=== PATIENT | female | born 1965 | race African-American/Black ===

== ENCOUNTER 2018-05-11 20:31 | Emergency (ER) | payer SELFPAY ==
[2018-05-11 21:46] LABS: Absolute Lymphocytes (CBC) 1.4 K/uL (0.7-4.9); Basophils % 0.1 % (0-1.3); Eosinophils % 1.1 % (0-4.4); Hematocrit 48.6 % (36.0-45.0); Lymphocytes % 12.2 % (15.3-44.8); MCH 27.7 pg (27.0-35.0); MPV 9.8 fL (7.6-11.3); Monocytes % 8.4 % (3.3-12.3); RBC Red Blood Cell Count 5.92 M/uL (3.86-4.86)
[2018-05-11 21:51] LABS: Protime INR 0.97
[2018-05-11 22:19] LABS: ALT/SGPT 32 U/L (12-78); AST/SGOT 20 U/L (15-37); Albumin 3.8 g/dL (3.4-5.0); Alkaline Phosphatase 106 U/L (45-117); BUN Blood Urea Nitrogen 18 mg/dL (7-18); Bicarbonate 27 mmol/L (21-32); Bilirubin Direct < 0.1 mg/dL (0-0.2); Bilirubin Total 0.3 mg/dL (0.2-1.0); Glucose Level 96 mg/dL (74-106); NT PRO-BNP 48 pg/mL (<125); Protein, Total 8.1 g/dL (6.4-8.2); Sodium Level 143 mmol/L (136-145); Troponin (Emerg Dept Use Only) < 0.02 ng/mL (0.0-0.045)
[2018-05-12] MEDS ORDERED: ACETAMINOPHEN 500 MG TAB ONE (00:57)
--- NOTE | 2018-05-12 01:17 | ER ---
Nurse's Notes [facility] Name: Erna Tabor Age: 52 yrs Sex: Female : 1965 Arrival Date: 05/11/2018 Time: 20:32 Bed 13 Private MD: Diagnosis: Chest pain, unspecified;Abnormal electrocardiogram [ECG] [EKG] Presentation: 05/11 20:40 Presenting complaint: EMS states: Pt was complaining of abdominal pain and nausea, when jb4 we attempted to start an IV she refused. Started complaining of chest pain and indigestion along with right shoulder pain. Transition of care: patient was not received from another setting of care. Onset of symptoms was May 11, 2018. Risk Assessment: Do you want to hurt yourself or someone else? Patient reports no desire to harm self or others. Initial Sepsis Screen: Does the patient meet any 2 criteria? No. Patient's initial sepsis screen is negative. Does the patient have a suspected source of infection? No. Patient's initial sepsis screen is negative. 20:40 Method Of Arrival: EMS: [facility] jb4 20:40 Acuity: SENAIT 3 jb4 20:40 Care prior to arrival: Glucose check: 102. jb4 Triage Assessment: 20:56 General: Appears in no apparent distress. uncomfortable, Behavior is calm, cooperative. jb4 Pain: Complains of pain in anterior aspect of right shoulder, thoracic area, chest and abdomen Pain does not radiate. Pain currently is 10 out of 10 on a pain scale. EENT: No signs and/or symptoms were reported regarding the EENT system. Neuro: Level of Consciousness is awake, alert, obeys commands, Oriented to person, place, time, situation. Cardiovascular: Patient's skin is warm and dry. Rhythm is sinus rhythm. Respiratory: Airway is patent Respiratory effort is even, unlabored, Respiratory pattern is regular, symmetrical. GI: Abdomen is round non-distended, Bowel sounds present X 4 quads. Abd is soft X 4 quads Abd is non tender in right upper quadrant, left upper quadrant and right lower quadrant Abdomen is tender to palpation in left lower quadrant. : No signs and/or symptoms were reported regarding the genitourinary system. Derm: Skin is intact, Skin is dry, Skin is normal, Skin temperature is warm. Musculoskeletal: Circulation, motion, and sensation intact. 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 - Social history:: Smoking status: Patient uses tobacco products, smokes one-half pack cigarettes per day, Patient uses alcohol, occasionally. - Ebola Screening: : No symptoms or risks identified at this time. Screenin:01 Abuse screen: Denies threats or abuse. Nutritional screening: No deficits noted. jb4 Tuberculosis screening: No symptoms or risk factors identified. Fall Risk None identified. Assessment: 21:01 General: see triage assessment.. jb4 22:09 Reassessment: Patient appears in no apparent distress at this time. Patient and/or jb4 family updated on plan of care and expected duration. Pain level reassessed. Patient is alert, oriented x 3, equal unlabored respirations, skin warm/dry/pink. 22:48 Reassessment: Patient appears in no apparent distress at this time. Patient and/or jb4 family updated on plan of care and expected duration. Pain level reassessed. Pt is resting quietly with eyes closed. Respirations even and unlabored. 05/12 00:07 Reassessment: Patient appears in no apparent distress at this time. Patient and/or jb4 family updated on plan of care and expected duration. Pain level reassessed. Patient is alert, oriented x 3, equal unlabored respirations, skin warm/dry/pink. Vital Signs: 05/11 20:56 BP 105 / 65; Pulse 88; Resp 18; Temp 98.6(O); Pulse Ox 95% on R/A; Weight 63.5 kg (R); jb4 Height 5 ft. 4 in. (162.56 cm) (R); Pain 10/10; 22:45 BP 106 / 72; Pulse 94; Resp 92; Pulse Ox 94% on R/A; jb4 05/12 00:07 BP 103 / 74; Pulse 94; Resp 16; Pulse Ox 94% on R/A; jb4 05/11 20:56 Body Mass Index 24.03 (63.50 kg, 162.56 cm) jb4 ED Course: 05/11 20:32 Patient arrived in ED. al2 20:51 Neo Bautista, RN is Primary Nurse. jb4 20:51 Deepak Hinkle MD is Attending Physician. 20:54 Triage completed. jb4 20:56 Arm band placed on right wrist. jb4 21:01 Patient has correct armband on for positive identification. Bed in low position. Call jb4 light in reach. Side rails up X 1. conveyor monitor on. Pulse ox on. NIBP on. 21:15 Initial lab(s) drawn, by nd, sent to lab. Missed attempt(s): 22 gauge in left forearm. jp3 Bleeding controlled, band aid applied, catheter tip intact. Inserted saline lock: 24 gauge in left wrist, using aseptic technique. Blood collected. 21:16 XRAY Chest (1 view) In Process Unspecified. EDMS 21:37 Basic Metabolic Panel Sent. jb4 21:37 CBC with Diff Sent. jb4 21:37 LFT's Sent. jb4 21:37 Magnesium Sent. jb4 21:37 NT PRO-BNP Sent. jb4 21:37 PT-INR Sent. jb4 21:37 Troponin (emerg Dept Use Only) Sent. jb4 05/12 01:42 No provider procedures requiring assistance completed. IV discontinued, intact, jb4 bleeding controlled. Administered Medications: 01:00 Drug: Tylenol 500 mg Route: PO; jb4 01:15 Follow up: Response: No adverse reaction; Pain is decreased jb4 Outcome: 01:16 Discharge ordered by . 01:42 Discharged to home ambulatory. jb4 01:42 Condition: stable 01:42 Discharge instructions given to patient, Instructed on discharge instructions, follow up and referral plans. Demonstrated understanding of instructions, follow-up care. 02:18 Patient left the ED. jb4 Signatures: Dispatcher [employer] EDMS Neo Bautista RN RN jb4 Deepak Hinkle MD MD gs Love, Librado Figueroa jp3
--- NOTE | 2018-05-12 01:17 | EDPHYS ---
Physician Documentation [facility] Name: Erna Tabor Age: 52 yrs Sex: Female : 1965 Arrival Date: 05/11/2018 Time: 20:32 Bed 13 Private MD: ED Physician Deepak Hinkle HPI: 05/12 03:00 This 52 yrs old Black Female presents to ER via EMS with complaints of chest pain. gs 03:00 The patient or guardian reports chest pain that is located primarily in the epigastric gs area. Onset: yesterday. The pain does not radiate. Associated signs and symptoms: Pertinent positives: cough, body aches. The chest pain is described as burning. Duration: The patient or guardian reports multiple episodes, that wax and wane, with no pattern. Modifying factors: The symptoms are alleviated by nothing. the symptoms are aggravated by nothing. Severity of pain: At its worst the pain was moderate in the emergency department the pain has improved markedly. The patient has experienced similar episodes in the past, a few times. 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 - Social history:: Smoking status: Patient uses tobacco products, smokes one-half pack cigarettes per day, Patient uses alcohol, occasionally. - Ebola Screening: : No symptoms or risks identified at this time. ROS: 05/12 03:00 All other systems are negative. gs Exam: 03:00 Head/Face: Normocephalic, atraumatic. Eyes: Pupils equal round and reactive to light, gs extra-ocular motions intact. Lids and lashes normal. Conjunctiva and sclera are non-icteric and not injected. Cornea within normal limits. Periorbital areas with no swelling, redness, or edema. ENT: Nares patent. No nasal discharge, no septal abnormalities noted. Tympanic membranes are normal and external auditory canals are clear. Oropharynx with no redness, swelling, or masses, exudates, or evidence of obstruction, uvula midline. Mucous membranes moist. Neck: Trachea midline, no thyromegaly or masses palpated, and no cervical lymphadenopathy. Supple, full range of motion without nuchal rigidity, or vertebral point tenderness. No Meningismus. Chest/axilla: Normal chest wall appearance and motion. Nontender with no deformity. No lesions are appreciated. Cardiovascular: Regular rate and rhythm with a normal S1 and S2. No gallops, murmurs, or rubs. Normal PMI, no JVD. No pulse deficits. Respiratory: Lungs have equal breath sounds bilaterally, clear to auscultation and percussion. No rales, rhonchi or wheezes noted. No increased work of breathing, no retractions or nasal flaring. Back: No spinal tenderness. No costovertebral tenderness. Full range of motion. Skin: Warm, dry with normal turgor. Normal color with no rashes, no lesions, and no evidence of cellulitis. MS/ Extremity: Pulses equal, no cyanosis. Neurovascular intact. Full, normal range of motion. Neuro: Awake and alert, GCS 15, oriented to person, place, time, and situation. Cranial nerves II-XII grossly intact. Motor strength 5/5 in all extremities. Sensory grossly intact. Cerebellar exam normal. Normal gait. 03:00 Constitutional: The patient appears alert, awake. 03:00 Abdomen/GI: Palpation: mild abdominal tenderness, in the epigastric area. 03:00 ECG was reviewed by the Attending Physician. Vital Signs: 05/11 20:56 BP 105 / 65; Pulse 88; Resp 18; Temp 98.6(O); Pulse Ox 95% on R/A; Weight 63.5 kg (R); jb4 Height 5 ft. 4 in. (162.56 cm) (R); Pain 10/10; 22:45 BP 106 / 72; Pulse 94; Resp 92; Pulse Ox 94% on R/A; jb4 05/12 00:07 BP 103 / 74; Pulse 94; Resp 16; Pulse Ox 94% on R/A; 4 05/11 20:56 Body Mass Index 24.03 (63.50 kg, 162.56 cm) [facility] MDM: 05/11 21:01 Patient medically screened. 05/12 03:00 Differential diagnosis: abnormal EKG, gastritis, gastroesophageal reflux disease (GERD). Data reviewed: vital signs, nurses notes, lab test result(s), EKG, radiologic studies. Response to treatment: the patient's symptoms have resolved after treatment, the patient's pain is gone, and as a result, I will discharge patient. 05/11 20:52 Order name: Basic Metabolic Panel; Complete Time: 22:20 05/11 20:52 Order name: CBC with Diff; Complete Time: 22:20 05/11 20:52 Order name: LFT's; Complete Time: 22:20 05/11 20:52 Order name: Magnesium; Complete Time: 22:20 05/11 20:52 Order name: NT PRO-BNP; Complete Time: 22:20 05/11 20:52 Order name: PT-INR; Complete Time: 22:20 05/11 20:52 Order name: Troponin (emerg Dept Use Only); Complete Time: 22:20 05/11 20:52 Order name: XRAY Chest (1 view) 05/11 20:52 Order name: EKG; Complete Time: 20:54 05/11 20:52 Order name: Cardiac monitoring; Complete Time: 21:37 05/11 20:52 Order name: EKG - Nurse/Tech; Complete Time: 21:37 05/11 20:52 Order name: IV Saline Lock; Complete Time: : 05/11 23:30 Order name: Troponin (emerg Dept Use Only); Complete Time: 01:13 05/11 20:52 Order name: Labs collected and sent; Complete Time: 21:37 05/11 20:52 Order name: O2 Per Protocol; Complete Time: :37 05/11 20:52 Order name: O2 Sat Monitoring; Complete Time: :37 EC:00 Rate is 89 beats/min. Rhythm is regular. DC interval is normal. QRS interval is normal. gs T waves are Inverted. Clinical impression: NSR w/ Non-specific ST/T Changes and Abnormal EKG without significant change. Interpreted by me. Administered Medications: 01:00 Drug: Tylenol 500 mg Route: PO; jb4 01:15 Follow up: Response: No adverse reaction; Pain is decreased jb4 Disposition: 05/12/18 01:16 Discharged to Home. Impression: Chest pain, unspecified, Abnormal electrocardiogram [ECG] [EKG]. - Condition is Stable. - Discharge Instructions: Nonspecific Chest Pain. - Medication Reconciliation Form, Thank You Letter, Antibiotic Education, Prescription Opioid Use form. - Follow up: Private Physician; When: 2 - 3 days; Reason: Re-evaluation by your physician. Signatures: Dispatcher [employer] Neo Cruz RN RN jb4 Deepak Hinkle MD MD gs Corrections: (The following items were deleted from the chart) 01:18 01:16 05/12/2018 01:16 Discharged to Home. Impression: Chest pain, unspecified. gs Condition is Stable. Forms are Medication Reconciliation Form, Thank You Letter, Antibiotic Education, Prescription Opioid Use. Follow up: Private Physician; When: 2 - 3 days; Reason: Re-evaluation by your physician. 02:18 01:18 05/12/2018 01:16 Discharged to Home. Impression: Chest pain, unspecified; jb4 Abnormal electrocardiogram [ECG] [EKG]. Condition is Stable. Discharge Instructions: Nonspecific Chest Pain. Forms are Medication Reconciliation Form, Thank You Letter, Antibiotic Education, Prescription Opioid Use. Follow up: Private Physician; When: 2 - 3 days; Reason: Re-evaluation by your physician.
[2018-05-12] MEDS ORDERED: FAMOTIDINE 20 MG TAB ONE (02:58)
[2018-05-12] MEDS ORDERED: ONDANSETRON 4 MG (ODT) TAB ONE (02:58)
--- NOTE | 2018-05-12 11:47 | EKG ---
Test Date: 2018-05-11 Test Time: 20:49:24 Channeler Outsole: MARINA MEASUREMENT RESULTS: Intervals: Rate: 89 WI: 120 QRSD: 86 QT: 362 QTc: 440 [place]: P: 63 WI: 120 QRS: 64 T: -52 INTERPRETIVE STATEMENTS: Normal sinus rhythm Possible Left atrial enlargement T wave abnormality, consider inferior ischemia T wave abnormality, consider anterolateral ischemia Abnormal ECG No previous ECG available for comparison Electronically Signed On 05-12-18 11:45:55 NATURAL SCIENCES PROFESSOR by Jhoan Kelly
--- NOTE | 2018-05-12 12:52 | RAD REPORT ---
EXAM DESCRIPTION: RAD - Chest Single View - 05/11/2018 9:42 pm CLINICAL HISTORY: Chest pain COMPARISON: None. TECHNIQUE: AP portable chest image was obtained 2105 hours . FINDINGS: No focal infiltrate seen. An approximately 8 millimeter round dense nodule is present left mid lung field superimposed on the posterior left eighth rib. This is relatively dense and is probab ly a granuloma. A benign sclerotic process of the rib be possible. Heart and vasculature are normal. No measurable pleural effusion and no pneumothorax. No acute bony abnormality seen. No acute aortic f indings suspected. Final report was delayed due to network malfunction. IMPRESSION: No infiltrate or acute cardiopulmonary finding seen. Small nodule in the left mid lung field is probably a granuloma but needs comparison imaging. Any known outside chest exam could be submitted for comparison. A 3-4 months single-view chest follow -up could be obtained. If the patient has smoking history or other risk factor, CT imaging of the [address] st could be performed.
== END 2018-05-12 02:18 | disposition home or self-care (01) ==
LOC: ER 20:31
DX: R94.31 Abnormal electrocardiogram [ECG] [EKG] (principal); K21.9 Gastro-esophageal reflux disease without esophagitis; F17.210 Nicotine dependence, cigarettes, uncomplicated
CPT/HCPCS: 36415; 71045; 80048; 80076; 83735; 83880; 84484; 85025; 85610; 93005; 99284

== ENCOUNTER 2018-05-12 02:31 | Emergency (ER) | payer SELFPAY ==
--- OUTSIDE RECORDS SUMMARY | 2018-05-12 02:36 | XMS REPORT | Continuity of Care Document ---
:1965 Author Organization Interface Problems Problem Status Onset Classification Date Comments Source Date Reported Acute reaction 12/12/19 12/14/2017 The to stress 18 [facility] Homeless 12/12/19 12/14/2017 The 18 [facility] NADEEM Active 12/12/19 The 18 [facility] Pain in right 08/27/19 11/24/2017 knee 18 [facility] Bilateral knee 08/19/19 11/24/2017 pain 18 [facility] Pain and 08/19/19 11/24/2017 swelling of left 18 [facility] knee. KNEE PAIN Active 08/19/19 18 [facility] SMALL BOWEL Active 06/28/19 OBSTRUCTION 17 [facility] ABD PAIN Active 06/28/19 17 [facility] STOMACH PAIN Active 06/18/19 17 [facility] Discharge 01/18/20 01/21/2016 Diagnosis: 16 [facility] Polysubstance abuse ANXIETY Active 01/18/20 16 [facility] Discharge 08/02/19 08/05/2015 Diagnosis: 16 [facility] Muscle strain LEG PAIN Active 08/02/19 16 [facility] Mass of abdomen Resolved Problem 12/14/2017 [facility] Abdominal pain Active Problem 12/14/2017 [place] Bipolar 1 Resolved Problem 12/14/2017 The disorder, [place],M depressed H [facility] Nausea and Active Problem 12/14/2017 vomiting [place] Pain Active Problem 12/14/2017 [place] Effusion, left 11/24/2017 knee [facility] Major depressive 11/24/2017 disorder, single [facility] episode, unspecified Rheumatoid 11/24/2017 arthritis, [facility] unspecified Nicotine 11/24/2017 dependence, [facility] cigarettes, uncomplicated OTHER INTESTINAL Active OBSTRUCTION [facility] Medications Medication Details Route Status Patient Ordering Order Source Instructions Provider Date meloxicam 7.5 MG 7.5 mg=1 tab, Active Oral Tablet PO, BID, PRN 2017 [facility] [Mobic] Pain, # 14 tab, 0 Refill(s) Motrin 600 mg, Route: Inactive PO, Drug form: 2017 [facility] TAB, ONCE, Dosing Weight 61.364, kg, Priority: STAT, Start date: 08/18/17 11:30:00 [employer], Stop date: 08/18/17 11:30:00 [employer] Flagyl 500 mg, 100 mL, Inactive Route: IVPB, 2016 [facility] Drug form: INJ, [id number], Dosing Weight 63.636, kg, Start date: 07/01/16 14:00:00 [employer], Duration: 30 day, Stop date: 07/31/16 6:00:00 CSTNotes: (Same as: Flagyl) Avoid alcohol. tramadol 50 mg=1 tab, Active hydrochloride 50 PO, Q6H, PRN 2017 [facility] MG Oral Tablet Pain Score 6-10, X 3 day, # 12 tab, 0 Refill(s) magnesium sulfate 50 mL, Rate: 25 Inactive ml/hr, Infuse 2016 [facility] over: 2 hr, Route: IVPB, Total Volume: 50, Start date: 06/29/16 20:05:00 [employer], Stop date: 06/29/16 20:05:00 CSTNotes: WASTE: F/P - Sink; E - [employer] Lovenox 40 mg, 0.4 mL, No Longer Route: SUB-Q, Active 2016 [facility] Drug form: INJ, [id number], Dosing Weight 70.455, kg, Start date: 06/29/16 9:00:00 [employer], Duration: 30 day, Stop date: 07/28/16 9:00:00 CSTNotes: (Same as: Lovenox) Flagyl 500 mg, 100 mL, No Longer Route: IVPB, Active 2016 [facility] Drug form: INJ, [id number], Dosing Weight 63.636, kg, Start date: 06/29/16 5:00:00 [employer], Duration: 30 day, Stop date: 07/28/16 21:00:00 CSTNotes: (Same as: Flagyl) Avoid alcohol. Ciprofloxacin 400 mg, 200 mL, No Longer Route: IVPB, Active 2016 [facility] Drug form: INJ, [id number], Dosing Weight 63.636, kg, Priority: STAT, Start date: 06/29/16 4:36:00 [employer], Duration: 30 day, Stop date: 07/28/16 16:36:00 CSTNotes: Do not refrigerate Enoxaparin 40 mg, 0.4 mL, No Longer Route: SUB-Q, Active 2016 [facility] Drug form: INJ, [id number], Dosing Weight 70.455, kg, Start date: 06/28/16 23:00:00 [employer], Duration: 30 day, Stop date: 07/27/16 23:00:00 CSTNotes: (Same as: Lovenox) Saline Flush 0.9% 10 ml, Route: No Longer IVP, Drug Form: Active 2016 [facility] INJ, Dosing Weight 70.455, kg, PRN, PRN Line Flush, Start date: 06/28/16 22:17:00 [employer], Duration: 30 day, Stop date: 07/28/16 22:16:00 CSTNotes: (Same as: BD Posiflush) Sodium Chloride 1,000 mL, Rate: No Longer 0.0769 MEQ/ML 100 ml/hr, Active 2016 [facility] Injectable Infuse over: 10 Solution hr, Route: IV, Dosing Weight 70.455 kg, Total Volume: 1,000, Start date: 06/28/16 22:17:00 [employer], Duration: 30 day, Stop date: 07/28/16 22:16:00 [employer] Morphine 2 mg, 0.5 mL, No Longer Route: IVP, Active 2016 [facility] Drug form: SOLN, Q3H, Dosing Weight 70.455, kg, PRN Pain Score 4-6, Start date: 06/28/16 22:17:00 [employer], Duration: 30 day, Stop date: 07/28/16 22:16:00 CSTNotes: (Same as:MORPhine Sulfate) Ondansetron 4 mg, 2 mL, No Longer Route: IVP, Active 2016 [facility] Drug form: INJ, Q4H, Dosing Weight 70.455, kg, PRN Nausea & Vomiting, Start date: 06/28/16 22:17:00 [employer], Duration: 30 day, Stop date: 07/28/16 22:16:00 CSTNotes: (Same as: Zofran) MEDICATION WASTE Product Size: 4 mg Product Wasted: ___ mg Acetaminophen 650 mg, 2 tab, No Longer Route: PO, Drug Active 2016 [facility] form: TAB, Q4H, Dosing Weight 70.455, kg, PRN Pain 1-3/Temp > 100.4 F, Start date: 06/28/16 22:17:00 [employer], Duration: 30 day, Stop date: 07/28/16 22:16:00 CSTNotes: Do not exceed 4 gm/day. (Same as: Tylenol) Morphine 4 mg, Route: Inactive IVP, Drug form: 2016 [facility] INJ, ONCE, Dosing Weight 70.455, kg, Priority: STAT, Start date: 06/28/16 20:33:00 [employer], Stop date: 06/28/16 20:33:00 [employer] Barium Sulfate 450 mL, Route: Inactive PO, Drug Form: 2016 [facility] SUSP, Dosing Weight 70.455, kg, ONCE, Start date: 06/28/16 17:00:00 [employer], Stop date: 06/28/16 17:00:00 CSTNotes: Same as Readi-Cat 2 Metoclopramide 10 mg, 2 mL, Inactive Route: IVP, 2016 [facility] Drug form: INJ, ONCE, Dosing Weight 70.455, kg, Priority: STAT, Start date: 06/28/16 17:00:00 [employer], Stop date: 06/28/16 17:00:00 CSTNotes: (Same as: Reglan) Morphine 4 mg, 1 mL, Inactive Route: IVP, 2016 [facility] Drug form: SOLN, ONCE, Dosing Weight 70.455, kg, Priority: STAT, Start date: 06/28/16 17:00:00 [employer], Stop date: 06/28/16 17:00:00 CSTNotes: (Same as:MORPhine Sulfate) Sodium Chloride 1,000 mL, 1000 Inactive 0.154 MEQ/ML ml/hr, Infuse 2016 [facility] Injectable Over: 1 hr, Solution Route: IV, 1,000, Drug form: INJ, ONCE, Priority: STAT, Dosing Weight 70.455 kg, Start date: 06/28/16 17:00:00 [employer], Duration: 1 doses or times, Stop date: 06/28/16 17:00:00 [employer] Saline Flush 0.9% 10 mL, Route: Inactive IVP, Drug Form: 2016 [facility] INJ, Dosing Weight 70.455, kg, PRN, PRN Line Flush, Start date: 06/28/16 17:00:00 [employer], Duration: 30 day, Stop date: 07/28/16 16:59:00 CSTNotes: (Same as: BD Posiflush) Acetaminophen 300 2 tab, PO, Q4H, Active MG / Codeine PRN Pain, X 7 2016 [facility] Phosphate 30 MG day, # 50 tab, Oral Tablet 0 Refill(s) [Tylenol with Codeine #3] Docusate Sodium 100 mg=1 cap, Active 100 MG Oral PO, BID, PRN 2017 [facility] Capsule [Colace] Constipation, # 20 cap, 0 Refill(s) Ondansetron 4 MG 4 mg=1 tab, PO, Active Disintegrating BID, PRN Nausea 2017 [facility] Tablet [Zofran] and Vomiting, Dissolve tab under tongue, X 5 day, # 10 tab, 0 Refill(s) pantoprazole 20 40 mg=2 tab, Active MG Enteric Coated PO, Daily, # 60 2016 [facility] Tablet [Protonix] tab, 0 Refill(s) Nicotine 21 mg, 1 patch, No Longer Route: TOP, Active 2016 [facility] Drug form: ERFILM, Daily, Dosing Weight 70.455, kg, Priority: NOW, Start date: 06/21/16 11:31:00 [employer], Duration: 30 day, Stop date: 07/21/16 9:00:00 CSTNotes: (Same as: Habitrol) "Remove old patch before application of new patch" WASTE: F/P - P Waste Black; E - P Waste Black morphine Sulfate 1 mg, 0.25 mL, Inactive Route: IVP, 2016 [facility] Drug form: SOLN, ONCE, Start date: 06/20/16 23:21:00 [employer], Stop date: 06/20/16 23:21:00 CSTNotes: (Same as:MORPhine Sulfate) Alprazolam 2 MG 2 mg=1 tab, PO, No Longer Oral Tablet Bedtime, # 20 Active 2017 [facility] [Xanax] tab, 0 Refill(s) Acetaminophen 325 1 tab, PO, Q4H, No Longer MG / Hydrocodone PRN for pain, # Active 2017 [facility] Bitartrate 10 MG 24 tab, 0 Oral Tablet Refill(s) [Chloride 10/325] meloxicam 15 mg 15 mg=1 tab, No Longer oral tablet PO, Daily, # 30 Active 2017 [facility] tab, 0 Refill(s) Hydralazine 10 mg, 0.5 mL, No Longer Route: IVP, 2016 [facility] Drug form: INJ, Q4H, Dosing Weight 70.455, kg, PRN Hypertension, PLease give for sys BP >150, Start date: 06/19/16 7:56:00 [employer], Duration: 30 day, Stop date: 07/19/16 7:55:00 CSTNotes: (Same as: Apresoline) Push over 5 minutes Labetalol 20 mg, 4 mL, No Longer Route: IVP, 2016 [facility] Drug form: INJ, Q4H, Dosing Weight 70.455, kg, PRN Hypertension, Start date: 06/19/16 7:55:00 [employer], Duration: 30 day, Stop date: 07/19/16 7:54:00 CSTNotes: (Same as: Normodyne, Trandate) Push over 2 minutes Give bolus over 2-3 minutes. Tylenol 1,000 mg, 2 No Longer tab, Route: PO, Active 2016 [facility] Drug form: TAB, Q8H, Dosing Weight 70.455, kg, PRN For Temp > 100.4 F, Start date: 06/19/16 7:55:00 [employer], Duration: 30 day, Stop date: 07/19/16 7:54:00 CSTNotes: Max acetaminophen 4000 mg/day (4 gm/day). (Same as: Tylenol Extra Strength) Protonix 40 mg, Route: No Longer IVP, Drug form: 2016 [facility] INJ, Before Breakfast, Dosing Weight 70.455, kg, Priority: NOW, Start date: 06/19/16 7:55:00 [employer], Duration: 30 day, Stop date: 07/19/16 7:30:00 CSTNotes: For IV push reconstitute with 10 ml 0.9% sodium chloride and push over 2 minutes. (Same as: Protonix) Lovenox 40 mg, 0.4 mL, No Longer Route: SUB-Q, Active 2016 [facility] Drug form: INJ, [id number], Dosing Weight 70.455, kg, Priority: NOW, Start date: 06/19/16 7:55:00 [employer], Duration: 30 day, Stop date: 07/18/16 7:55:00 CSTNotes: (Same as: Lovenox) Albuterol 0.833 3 ml, Route: No Longer MG/ML / INHALATION, Active 2016 [facility] Ipratropium Drug Form: Coram 0.167 SOLN, Dosing MG/ML Inhalant Weight 70.455, Solution [DuoNeb] kg, PRN, PRN Respiratory Protocol, Start date: 06/19/16 7:55:00 [employer], Duration: 30 day, Stop date: 07/19/16 7:54:00 CSTNotes: (Same as: Duoneb) D5W 1/2NS 1,000 1,000 mL, Rate: No Longer mL 125 ml/hr, Active 2016 [facility] Infuse over: 8 hr, Route: IV, Dosing Weight 70.455 kg, Total Volume: 1,000, Start date: 06/19/16 7:55:00 [employer], Duration: 30 day, Stop date: 07/19/16 7:54:00 [employer] Ondansetron 4 mg, 2 mL, No Longer Route: IVP, 2016 [facility] Drug form: INJ, Q4H, Dosing Weight 70.455, kg, PRN Nausea & Vomiting, Start date: 06/19/16 7:55:00 [employer], Duration: 30 day, Stop date: 07/19/16 7:54:00 CSTNotes: (Same as: Zofran) MEDICATION WASTE Product Size: 4 mg Product Wasted: ___ mg Morphine 1 mg, 0.25 mL, No Longer Route: IVP, Active 2016 [facility] Drug form: SOLN, Q3H, Dosing Weight 70.455, kg, PRN Pain Score 4-6, Start date: 06/19/16 7:55:00 [employer], Duration: 30 day, Stop date: 07/19/16 7:54:00 CSTNotes: (Same as:MORPhine Sulfate) Dilaudid 0.5 mg, 0.5 mL, Inactive Route: IVP, 2016 [facility] Drug form: INJ, ONCE, Dosing Weight 70.455, kg, Priority: STAT, Start date: 06/19/16 5:46:00 [employer], Stop date: 06/19/16 5:46:00 [employer] Sodium Chloride 250 mL, Route: No Longer 0.9% IV IVPB, Start Active 2016 [facility] date: 06/19/16 5:01:00 [employer], Duration: 30 day, Stop date: 07/19/16 5:00:00 [employer], PRN Line Flush BD Normal Saline 10 mL, Route: No Longer Flush IVP, Drug Form: Active 2016 [facility] INJ, PRN, PRN Line Flush, Start date: 06/19/16 5:01:00 [employer], Duration: 30 day, Stop date: 07/19/16 5:00:00 CSTNotes: (Same as: BD Posiflush) Ceftriaxone 1 gm, Route: Inactive IVPB, ONCE, 2016 [facility] Dosing Weight 70.455, kg, Priority: STAT, Start date: 06/19/16 4:59:00 [employer], Stop date: 06/19/16 4:59:00 CSTNotes: (Same As: Rocephin). Use with 100 mL NS and infuse over 30 min MEDICATION WASTE Product Size: 1000 mg Product Wasted: ___ mg sodium chloride 1,000 mL, Rate: Inactive 0.9% 1000 ml INJ 125 ml/hr, 2016 [facility] 1,000 mL Infuse over: 8 hr, Route: IV, Dosing Weight 70.455 kg, Total Volume: 1,000, Start date: 06/19/16 4:43:00 [employer], Duration: 30 day, Stop date: 07/19/16 4:42:00 [employer] Dilaudid 0.5 mg, Route: Inactive IVP, ONCE, 2016 [facility] Dosing Weight 70.455, kg, Priority: STAT, Start date: 06/19/16 2:10:00 [employer], Stop date: 06/19/16 2:10:00 [employer] Zofran 2 mg, 1 mL, No Longer Route: IVP, Active 2016 [facility] Drug form: INJ, ONCE, Dosing Weight 70.455, kg, Priority: STAT, Start date: 06/18/16 23:40:00 [employer], Stop date: 06/18/16 23:40:00 CSTNotes: (Same as: Zofran) MEDICATION WASTE Product Size: 4 mg Product Wasted: ___ mg Morphine 2 mg, 0.5 mL, No Longer Route: IVP, Active 2016 [facility] Drug form: SOLN, ONCE, Dosing Weight 70.455, kg, Priority: STAT, Start date: 06/18/16 23:39:00 [employer], Stop date: 06/18/16 23:39:00 CSTNotes: (Same as:MORPhine Sulfate) Sodium Chloride 1,000 mL, 1,000 No Longer 0.154 MEQ/ML ml/hr, Infuse Active 2016 [facility] Injectable Over: 1 hr, Solution Route: IV, 1,000, Drug form: INJ, ONCE, Priority: STAT, Dosing Weight 70.455 kg, Start date: 06/18/16 23:38:00 [employer], Duration: 1 doses or times, Stop date: 06/18/16 23:38:00 [employer] cyclobenzaprine 10 mg=1 tab, Active 10 mg oral tablet PO, TID, PRN 2015 [facility] for spasms, X 3 day, # 9 tab, 0 Refill(s) Acetaminophen 325 1 tab, Route: Inactive MG / Hydrocodone PO, Drug Form: 2015 [facility] Bitartrate 10 MG TAB, Dosing Oral Tablet Weight 72.727, [Chloride 10/325] kg, ONCE, STAT, Start date: 08/02/15 12:24:00, Stop date: 08/02/15 12:24:00Notes: Do not exceed 4gm/day of acetaminophen. (Same as: Chloride 325/10) cyclobenzaprine 10 mg, 1 tab, Inactive Route: PO, Drug 2015 [facility] form: TAB, ONCE, Dosing Weight 72.727, kg, Priority: STAT, Start date: 08/02/15 10:24:00, Stop date: 08/02/15 10:24:00Notes: (Same As: Flexeril) Morphine 4 mg, 1 mL, Inactive Route: IM, Drug 2015 [facility] form: INJ, ONCE, Dosing Weight 72.727, kg, Priority: STAT, Start date: 08/02/15 10:23:00, Stop date: 08/02/15 10:23:00Notes: (Same as:MORPhine Sulfate) Acetaminophen 325 1 tab, Route: Inactive MG / Hydrocodone PO, Drug Form: 2015 [facility] Bitartrate 5 MG TAB, Dosing Oral Tablet Weight 72.727, [Chloride 5/325] kg, ONCE, STAT, Start date: 08/02/15 10:14:00, Stop date: 08/02/15 10:14:00Notes: (Same as: Chloride 325/5) Do not exceed 4gm/day of acetaminophen. Orphenadrine 60 mg, 2 mL, Inactive Route: IM, Drug 2015 [facility] form: INJ, ONCE, Dosing Weight 72.727, kg, Priority: STAT, Start date: 08/02/15 10:14:00, Stop date: 08/02/15 10:14:00 Allergies, Adverse Reactions, Alerts Substance Category Reaction Severity Reaction Status Date Comments Source type Reported aspirin Assertion Drug Active allergy [facility] iodine Assertion Drug Active topical allergy [facility] penicillin Assertion Drug Active allergy [facility] Immunizations Immunization Date Given Site Status Last Updated Comments Source Results Order Name Results Value Reference Date Interpretation Comments Source Range CHEM PANEL Glucose Lvl 99 mg/dL 70 - 99 12/11 [facility] CHEM PANEL Calcium Lvl 9.0 mg/dL 8.5 - 10.5 12/11 [place] CHEM PANEL CO2 25 meq/L 24 - 32 12/11 [place] CHEM PANEL Sodium Lvl 139 meq/L 135 - 145 12/11 [facility] CHEM PANEL Chloride Lvl 106 meq/L 95 - 109 12/11 [place] CHEM PANEL Potassium 4.4 meq/L 3.5 - 5.1 12/11 [facility] The Lvl /2017 [place] CHEM PANEL Creatinine 1.02 mg/dL 0.50 - 12/11 [facility] The Lvl 1.40 [place] CHEM PANEL BUN 17 mg/dL 7 - 22 12/11 The [place] CHEM PANEL A/G Ratio 0.9 0.7 - 1.6 12/11 The [place] CHEM PANEL ALT 38 unit/L 0 - 65 12/11 The [place] CHEM PANEL Alk Phos 115 unit/L 39 - 136 12/11 The [place] CHEM PANEL AST 30 unit/L 0 - 37 12/11 The [place] CHEM PANEL AGAP 12.4 meq/L 10.0 - 12/11 [facility] The 20.0 [place] CHEM PANEL Bili Total 0.3 mg/dL 0.2 - 1.3 12/11 The [place] CHEM PANEL Globulin 4.0 g/dL 2.7 - 4.2 12/11 The [place] CHEM PANEL B/C Ratio 17 6 - 25 12/11 [facility] CHEM PANEL eGFR 73 12/11 Result Comment: The eGFR is calculated using the CKD-EPI formula. In most young, healthy individuals the eGFR will be >90 mL/ min/1.73m2. The eGFR declines with age. An eGFR of 60-89 may be normal in The mL/min/1. some populations, particularly the elderly, for whom the CKD-EPI formula has not been extensively validated. Use of the eGFR is not recommended in the following populations: [place] 3m2 Individuals with unstable creatinine concentrations, including patients and those with serious co-morbid conditions. Patients with extremes in muscle mass or diet. The data above are obtained from the National Kidney Disease Education Program (NKDEP) which additionally recommends that when the eGFR is used in patients with extremes of body mass index for purposes of drug dosing, the eGFR should be multiplied by the estimated BMI. CHEM PANEL Total 7.7 g/dL 6.4 - 8.4 12/11 [facility] The Protein [place] CHEM PANEL Albumin Lvl 3.7 g/dL 3.5 - 5.0 12/11 [place] DRUG U Cannab Scr Negative Negative 12/11 [facility] The SCREEN [place] *NA* (12/11/17 6:44 AM) DRUG U Phencyc Negative Negative 12/11 [facility] The SCREEN Scr [place] *NA* (12/11/17 6:44 AM) DRUG U Opiate Scr Negative Negative 12/11 [facility] SCREEN [place] *NA* (12/11/17 6:44 AM) DRUG UDS Note See Note 12/11 [facility] The SCREEN [place] (12/11/17 6:44 AM) DRUG U Cocaine Positive Negative 12/11 [facility] The SCREEN Scr [place] *ABN* (12/11/17 6:44 AM) DRUG U Yanci Scr Negative Negative 12/11 The SCREEN [place] *NA* (12/11/17 6:44 AM) DRUG U Amph Scr Negative Negative 12/11 The SCREEN [place] *NA* (12/11/17 6:44 AM) DRUG U Benzodia Negative Negative 12/11 The SCREEN Scr [place] *NA* (12/11/17 6:44 AM) TOXICOLOGY Salicylate 3.5 mg/dL 0.0 - 30.0 12/11 The Lvl /2017 [place] TOXICOLOGY Etoh (%) null 12/11 The [place] TOXICOLOGY Ethanol Lvl null 12/11 The [place] Knee 1-2 Knee 1-2 Patient Name: GERALD CUETO 08/18 - Views Views /2017 - [facility] Bilateral Bilateral DX : 1965; Age: 51 years y/o Female DX MR: [id number] Read by: Jean-Paul Mojica MD Dictated Date/time: 08/18/17 11:33 Electronically Signed by: Jean-Paul Mojica MD 08/18/17 11:34 FINAL REPORT BILATERAL KNEES * LEFT KNEE, 2 views History: left knee pain, left knee swelling. Technique : Frontal and lateral radiographs of the left knee were obtained. FINDINGS: There appears to be a moderate joint effusion. Please correlate with clinical examination. There is no evidence of fracture, dislocation, or acute change. There are no degenerative changes or other significant osseous abnormalities. IMPRESSION: 1. No osseous abnormalities are seen involving the left knee. 2. There appears to be a moderate joint effusion. Please correlate with clinical examination. * RIGHT KNEE, 2 views History: right knee pain, right knee swelling Technique: Frontal and lateral radiographs of the right knee were obtained. FINDINGS: There is no evidence of a significant joint effusion. There is no evidence of fracture, dislocation, or acute change. There are no degenerative changes or other significant osseous abnormalities. IMPRESSION: 1. Negative right knee. SL: [id number] Abdomen Abdomen Abdomen acute series w chest 1 view DX 06/30 - acute acute series /2016 - [facility] series w w chest 1 Female 50 years old chest 1 view DX view DX Read by: Ifeanyi Artis MD Dictated Date/time: 06/30/16 17:37 Clinical Indication: Abdominal distension; Electronically Signed by : Ifeanyi Artis MD 06/30/16 17:46 FINAL REPORT Comparison: None FINDINGS: The single view of the chest shows bilateral patchy lower lobe infiltrates suspicious for pneumonia.. Heart size, vascular markings, and osseous structures are within normal limits. The supine and upright views of the abdomen shows a non-obstructive bowel gas pattern. There is no abnormal dilatation of bowel loops. A small amount of gas is seen within small bowel loops in the left midabdomen. The majority of gas is in the colon. Some residual barium or other contrast is seen in the right colon. No significant air fluid levels. There is no pneumoperitoneaum. A surgical clip in the right upper quadrant suggest previous cholecystectomy. Additional surgical clip is centered to the right of the L4 vertebral body in the lower abdomen. There are no clinically significant osseous abnormalities noted. IMPRESSION: 1. Patchy infiltrates in the lung bases suspicious for early pneumonia. 2. Residual contrast in the right colon from previous GI contrast study. Nonspecific bowel gas pattern without convincing evidence of obstruction. SL: [facility] CHEM PANEL Magnesium 1.9 mg/dL 1.8 - 2.4 06/30 [facility] CHEM PANEL Phosphorus 2.6 mg/dL 2.5 - 4.5 06/30 [facility] CHEM PANEL A/G Ratio 0.6 0.7 - 1.6 06/30 [facility] CHEM PANEL AGAP 10.6 meq/L 10.0 - 06/30 20.0 [facility] CHEM PANEL Globulin 4.1 g/dL 2.7 - 4.2 06/30 [facility] CHEM PANEL B/C Ratio 5 6 - 25 06/30 [facility] CHEM PANEL eGFR 99 06/30 Result Comment: The eGFR is calculated using the CKD-EPI formula. In most young, healthy individuals the eGFR will be >90 mL/ min/1.73m2. The eGFR declines with age. An eGFR of 60-89 may be normal in mL/min/1.7 2017 some populations, particularly the elderly, for whom the CKD-EPI formula has not been extensively validated. Use of the eGFR is not recommended in the following populations: [place] [id number] Individuals with unstable creatinine concentrations, including patients and those with serious co-morbid conditions. Patients with extremes in muscle mass or diet. The data above are obtained from the National Kidney Disease Education Program (NKDEP) which additionally recommends that when the eGFR is used in patients with extremes of body mass index for purposes of drug dosing, the eGFR should be multiplied by the estimated BMI. CHEM PANEL CO2 21 meq/L 24 - 32 06/30 [facility] CHEM PANEL Albumin Lvl 2.4 g/dL 3.5 - 5.0 06/30 [facility] CHEM PANEL Total 6.5 g/dL 6.4 - 8.4 06/30 [facility] CHEM PANEL ALT 27 unit/L 0 - 65 06/30 [facility] CHEM PANEL Chloride Lvl 108 meq/L 95 - 109 06/30 [facility] CHEM PANEL Calcium Lvl 8.2 mg/dL 8.5 - 10.5 06/30 [facility] CHEM PANEL Sodium Lvl 135 meq/L 135 - 145 06/30 [facility] CHEM PANEL Potassium 4.6 meq/L 3.5 - 5.1 06/30 [facility] CHEM PANEL Creatinine 0.80 mg/dL 0.50 - 06/30 Lvl 1.40 [facility] CHEM PANEL BUN 4 mg/dL 7 - 22 06/30 [facility] CHEM PANEL Glucose Lvl 80 mg/dL 70 - 99 06/30 [facility] CHEM PANEL AST 19 unit/L 0 - 37 06/30 [facility] CHEM PANEL Bili Total 0.4 mg/dL 0.2 - 1.3 06/30 [facility] CHEM PANEL Alk Phos 103 unit/L 39 - 136 06/30 [facility] HEMATOLOGY PTT 27.4 s 22.9 - 06/30 MH 35.8 /2017 [facility] HEMATOLOGY INR 1.02 0.85 - 06/30 MH 1.17 [facility] HEMATOLOGY PT 13.6 s 12.0 - 06/30 MH 14.7 [facility] CHEM PANEL Magnesium 1.7 mg/dL 1.8 - 2.4 06/29 [facility] CHEM PANEL eGFR 99 06/29 Result Comment: The eGFR is calculated using the CKD-EPI formula. In most young, healthy individuals the eGFR will be >90 mL/ min/1.73m2. The eGFR declines with age. An eGFR of 60-89 may be normal in mL/min/1.7 some populations, particularly the elderly, for whom the CKD-EPI formula has not been extensively validated. Use of the eGFR is not recommended in the following populations: [address] Individuals with unstable creatinine concentrations, including patients and those with serious co-morbid conditions. Patients with extremes in muscle mass or diet. The data above are obtained from the National Kidney Disease Education Program (NKDEP) which additionally recommends that when the eGFR is used in patients with extremes of body mass index for purposes of drug dosing, the eGFR should be multiplied by the estimated BMI. CHEM PANEL CO2 26 meq/L 24 - 32 06/29 [facility] CHEM PANEL Chloride Lvl 111 meq/L 95 - 109 06/29 [facility] CHEM PANEL Potassium 3.8 meq/L 3.5 - 5.1 06/29 [facility] CHEM PANEL Sodium Lvl 144 meq/L 135 - 145 06/29 [facility] CHEM PANEL Bili Total 0.3 mg/dL 0.2 - 1.3 06/29 [facility] CHEM PANEL Alk Phos 72 unit/L 39 - 136 06/29 [facility] CHEM PANEL AST 15 unit/L 0 - 37 06/29 [facility] CHEM PANEL ALT 29 unit/L 0 - 65 06/29 [facility] CHEM PANEL Albumin Lvl 3.0 g/dL 3.5 - 5.0 06/29 [facility] CHEM PANEL Total 6.3 g/dL 6.4 - 8.4 06/29 [facility] CHEM PANEL Calcium Lvl 8.7 mg/dL 8.5 - 10.5 06/29 [facility] CHEM PANEL Glucose Lvl 87 mg/dL 70 - 99 06/29 [facility] CHEM PANEL Creatinine 0.80 mg/dL 0.50 - 06/29 Lvl 1.40 [facility] CHEM PANEL BUN 8 mg/dL 7 - 22 06/29 [facility] CHEM PANEL A/G Ratio 0.9 0.7 - 1.6 06/29 [facility] CHEM PANEL Globulin 3.3 g/dL 2.7 - 4.2 06/29 [facility] CHEM PANEL B/C Ratio 10 6 - 25 06/29 [facility] CHEM PANEL AGAP 10.8 meq/L 10.0 - 06/29 MH 20.0 [facility] HEMATOLOGY PTT 33.2 s 22.9 - 06/29 MH 35.8 /2016 [facility] HEMATOLOGY PT 13.6 s 12.0 - 06/29 MH 14.7 /2016 [facility] HEMATOLOGY INR 1.02 0.85 - 06/29 MH 1.17 [facility] HEMATOLOGY MPV 10.8 fL 7.4 - 10.4 06/29 [facility] HEMATOLOGY RDW 15.9 % 11.5 - 06/29 14.5 [facility] HEMATOLOGY Platelet 214 K/CMM 133 - 450 06/29 [facility] HEMATOLOGY MCH 28.0 pg 27.0 - 06/29 MH 31.0 [facility] HEMATOLOGY MCHC 33.6 g/dL 32.0 - 06/29 MH 36.0 /2016 [facility] HEMATOLOGY MCV 83.5 fL 80.0 - 06/29 MH 98.0 [facility] HEMATOLOGY Hgb 13.3 g/dL 12.0 - 06/29 MH 16.0 [facility] HEMATOLOGY Hct 39.7 % 36.0 - 06/29 MH 48.0 /2016 [facility] HEMATOLOGY WBC 9.2 K/CMM 3.7 - 10.4 06/29 [facility] HEMATOLOGY RBC 4.75 M/CMM 4.20 - 06/29 MH 5.40 /2016 [facility] HEMATOLOGY Eosinophils 0.2 K/CMM 0.0 - 0.5 06/29 # /2016 [facility] HEMATOLOGY Basophils # 0.0 K/CMM 0.0 - 0.2 06/29 [facility] HEMATOLOGY Segs-Bands # 6.1 K/CMM 1.5 - 8.1 06/29 [facility] HEMATOLOGY Monocytes # 0.9 K/CMM 0.0 - 0.8 06/29 [facility] HEMATOLOGY Lymphocytes 2.0 K/CMM 1.0 - 5.5 06/29 MH # /2016 [facility] HEMATOLOGY Eosinophils 1.8 % 0.0 - 4.0 06/29 [facility] HEMATOLOGY Monocytes 9.9 % 2.0 - 12.0 06/29 [facility] HEMATOLOGY Lymphocytes 22.1 % 20.0 - 06/29 MH 40.0 [facility] HEMATOLOGY Segs 66.1 % 45.0 - 06/29 MH 75.0 [facility] HEMATOLOGY Basophils 0.1 % 0.0 - 1.0 06/29 [facility] CHEM PANEL Lipase Lvl 83 unit/L 73 - 393 06/29 [facility] CHEM PANEL Alk Phos 97 unit/L 39 - 136 06/29 [facility] CHEM PANEL Total 7.8 g/dL 6.4 - 8.4 06/29 [facility] CHEM PANEL Globulin 4.3 g/dL 2.7 - 4.2 06/29 [facility] CHEM PANEL A/G Ratio 0.8 0.7 - 1.6 06/29 [facility] CHEM PANEL ALT 42 unit/L 0 - 65 06/29 [facility] CHEM PANEL AST 26 unit/L 0 - 37 06/29 [facility] CHEM PANEL Albumin Lvl 3.5 g/dL 3.5 - 5.0 06/29 [facility] CHEM PANEL Bili 0.3 mg/dL 0.0 - 1.0 06/29 [facility] CHEM PANEL Bili Total 0.4 mg/dL 0.2 - 1.3 06/29 [facility] CHEM PANEL Bili Direct 0.1 mg/dL 0.0 - 0.3 06/29 [facility] CHEM PANEL Amylase Lvl 41 unit/L 25 - 115 06/29 [facility] ELECTROLYT AGAP 8.9 meq/L 10.0 - 06/29 ES 20.0 [facility] ELECTROLYT eGFR 117 06/29 Result Comment: The eGFR is calculated using the CKD-EPI formula. In most young, healthy individuals the eGFR will be >90 mL/ min/1.73m2. The eGFR declines with age. An eGFR of 60-89 may be normal in ES mL/min/1.7 some populations, particularly the elderly, for whom the CKD-EPI formula has not been extensively validated. Use of the eGFR is not recommended in the following populations: [address] Individuals with unstable creatinine concentrations, including patients and those with serious co-morbid conditions. Patients with extremes in muscle mass or diet. The data above are obtained from the National Kidney Disease Education Program (NKDEP) which additionally recommends that when the eGFR is used in patients with extremes of body mass index for purposes of drug dosing, the eGFR should be multiplied by the estimated BMI. ELECTROLYT Chloride Lvl 105 meq/L 95 - 109 06/29 [facility] ELECTROLYT Potassium 3.9 meq/L 3.5 - 5.1 06/29 ES Lvl [facility] ELECTROLYT CO2 29 meq/L 24 - 32 06/29 [facility] ELECTROLYT Calcium Lvl 8.9 mg/dL 8.5 - 10.5 06/29 [facility] ELECTROLYT Glucose Lvl 94 mg/dL 70 - 99 06/29 [facility] ELECTROLYT Creatinine 0.69 mg/dL 0.50 - 06/29 [facility] Lvl 1. [facility] ELECTROLYT BUN 10 mg/dL 7 - 22 06/29 [facility] ELECTROLYT Sodium Lvl 139 meq/L 135 - 145 06/29 [facility] ENDOCRINOL S Preg Negative Negative 06/29 OG [facility] *NA* (06/28/16 6:46 PM) HEMATOLOGY MPV 10.9 fL 7.4 - 10.4 06/29 [facility] HEMATOLOGY Platelet 251 K/CMM 133 - 450 06/29 [facility] HEMATOLOGY RBC 5.81 M/CMM 4.20 - 06/29 5.40 [facility] HEMATOLOGY WBC 12.4 K/CMM 3.7 - 10.4 06/29 [facility] HEMATOLOGY Hgb 15.7 g/dL 12.0 - 06/29 16.0 [facility] HEMATOLOGY MCV 84.4 fL 80.0 - 06/29 98.0 [facility] HEMATOLOGY Hct 49.0 % 36.0 - 06/29 48.0 [facility] HEMATOLOGY MCHC 32.1 g/dL 32.0 - 06/29 36.0 [facility] HEMATOLOGY MCH 27.1 pg 27.0 - 06/29 31.0 [facility] HEMATOLOGY RDW 16.1 % 11.5 - 06/29 14. [facility] HEMATOLOGY Toxic Gran Moderate None Seen 06/29 [facility] *ABN* (06/28/16 6:46 PM) HEMATOLOGY Large Plt Moderate None Seen 06/29 [facility] *ABN* (06/28/16 6:46 PM) HEMATOLOGY Segs-Bands # 10.4 K/CMM 1.5 - 8.1 06/29 [facility] HEMATOLOGY Monocytes # 0.5 K/CMM 0.0 - 0.8 06/29 [facility] HEMATOLOGY Lymphocytes 1.7 K/CMM 1.0 - 5.5 06/29 [facility] HEMATOLOGY Basophils # 0.0 K/CMM 0.0 - 0.2 06/29 [facility] HEMATOLOGY Eosinophils 0.1 K/CMM 0.0 - 0.5 06/29 [facility] HEMATOLOGY Eosinophils 0.4 % 0.0 - 4.0 06/29 [facility] HEMATOLOGY Basophils 0.1 % 0.0 - 1.0 06/29 [facility] HEMATOLOGY Lymphocytes 13.2 % 20.0 - 06/29 40.0 [facility] HEMATOLOGY Monocytes 3.8 % 2.0 - 12.0 06/29 [facility] HEMATOLOGY Segs 82.5 % 45.0 - 06/29 75.0 [facility] URINE AND UA Color Yellow 06/29 STOOL [facility] URINE AND UA Sq Epi Few /LPF Few /LPF 06/29 [facility]OOL [facility] URINE AND UA WBC null 0 - 5 06/29 [facility]OL [facility] URINE AND UA RBC 1 /HPF 0 - 2 06/29 [facility] URINE AND UA Mucus Few /LPF None Seen 06/29 [facility] /LPF [facility] URINE AND UA Glucose Negative Negative 06/29 [facility] mg/dL mg/dL [facility] URINE AND UA Protein Negative Negative 06/29 [facility] mg/dL mg/dL [facility] URINE AND UA pH 5.0 5.0 - 8.0 06/29 ST[facility]OL [facility] URINE AND UA Spec Grav 1.019 <=1.030 06/29 STOOL [facility] URINE AND UA Leuk Est Negative Negative 06/29 [facility] (06/28/16 6:46 PM) URINE AND UA Nitrite Negative Negative 06/29 [facility]OL [facility] (06/28/16 6:46 PM) URINE AND UA 2.0 mg/dL 0.1 - 1.0 06/29 [facility] Urobilinogen /2016 [facility] URINE AND UA Blood Small Negative 06/29 STOOL [facility] *ABN* (06/28/16 6:46 PM) URINE AND UA Bili Negative Negative 06/29 STOOL [facility] *NA* (06/28/16 6:46 PM) URINE AND UA Ketones 80 mg/dL Negative 06/29 [facility] mg/dL /2016 [facility] URINE AND UA Turbidity Clear Clear 06/29 STOOL [facility] (06/28/16 6:46 PM) Abdomen/Pe Abdomen/Pelv CT SCAN OF THE ABDOMEN [<AND PELVIS>] WITHOUT CONTRAST. 06/28 - lvis wo IV is wo IV - [facility] contrast contrast CT HX: Clinical Indication: Abdominal pain, acute; upper abdominal pain / DLP [address] Comparison: CT abdomen pelvis of 06/19/2016. Read by: Manuel Abreu MD Dictated Date/time: 06/28/16 20:02 Electronically Signed by: Manuel Abreu MD 06/28/16 20:07 FINAL REPORT Technique: Helical CT images were obtained from the domes the diaphragms to the symphysis pubis without the administration of intravenous contrast. The lack of IV contrast lowers the sensitivity for penelope gnostic evaluation. Limited p.o. contrast was taken. ABDOMEN AND PELVIS: The lung bases are clear. The heart is normal in size. Small hiatal hernia. Grossly normal gallbladder. The unenhanced liver, spleen, pancreas, and adrenals are normal in appearance . Small amount of fluid is present within the subhepatic recess. Small fat-containing ventral hernias are present. Nonspecific diffusely dilated small bowel loops with thickened folds are present likely compatible with small bowel obstruction. The transition point ap pears within the pelvis with nondistended small bowel loops. The expected etiology remains indeterminate. The bladder is nondistended. Nonvisualization the uterus presumably post hysterectomy. IMPRESSION: 1. Small fat-containing ventral hernias are present. Nonspecific diffusely dilated small bowel loops with thickened folds are present likely compatible with small bowel obstruction. The transition point appears within the pelvis with nondistended small bowel loops. The expected etiology remains indeterminate. Please correlate clinically and surgical evaluation recommended. 2. Small amount of fluid is present within the subhepatic recess. 3. Small fat-containing ventral hernias are present. 4. Small hiatal hernia. 5. Postoperative hysterectomy. SL: [id number] CHEM PANEL eGFR 86 06/24 Result Comment: The eGFR is calculated using the CKD-EPI formula. In most young, healthy individuals the eGFR will be >90 mL/ min/1.73m2. The eGFR declines with age. An eGFR of 60-89 may be normal in mL/min/1. some populations, particularly the elderly, for whom the CKD-EPI formula has not been extensively validated. Use of the eGFR is not recommended in the following populations: [place] [address] Individuals with unstable creatinine concentrations, including patients and those with serious co-morbid conditions. Patients with extremes in muscle mass or diet. The data above are obtained from the National Kidney Disease Education Program (NKDEP) which additionally recommends that when the eGFR is used in patients with extremes of body mass index for purposes of drug dosing, the eGFR should be multiplied by the estimated BMI. CHEM PANEL Creatinine 0.80 mg/dL 0.50 - 06/24 Lvl 1.40 [facility] CHEM PANEL Sodium Lvl 141 meq/L 135 - 145 06/24 [facility] CHEM PANEL Potassium 3.5 meq/L 3.5 - 5.1 06/24 Lvl [facility] CHEM PANEL Chloride Lvl 106 meq/L 95 - 109 06/24 [facility] CHEM PANEL CO2 27 meq/L 24 - 32 06/24 [facility] CHEM PANEL Calcium Lvl 9.0 mg/dL 8.5 - 10.5 06/24 [facility] CHEM PANEL Glucose Lvl 87 mg/dL 70 - 99 06/24 [facility] CHEM PANEL BUN 3 mg/dL 7 - 22 06/24 [facility] CHEM PANEL AGAP 11.5 meq/L 10.0 - 06/24 20.0 [facility] HEMATOLOGY Lymphocytes 31.5 % 20.0 - 06/24 40.0 [facility] HEMATOLOGY Segs 52.8 % 45.0 - 06/24 75.0 /2016 [facility] HEMATOLOGY Eosinophils 3.4 % 0.0 - 4.0 06/24 [facility] HEMATOLOGY Monocytes 12.1 % 2.0 - 12.0 06/24 [facility] HEMATOLOGY Lymphocytes 2.7 K/CMM 1.0 - 5.5 06/24 [facility] HEMATOLOGY Basophils 0.2 % 0.0 - 1.0 06/24 [facility] Segs-Bands # 4.5 K/CMM 1.5 - 8.1 06/24 [facility] HEMATOLOGY Eosinophils 0.3 K/CMM 0.0 - 0.5 06/24 MH # /2017 [facility] HEMATOLOGY Monocytes # 1.0 K/CMM 0.0 - 0.8 06/24 [facility] MCHC 32.4 g/dL 32.0 - 06/24 36.0 [facility] RDW 16.3 % 11.5 - 06/24 MH 14.5 [facility] Platelet 193 K/CMM 133 - 450 06/24 [facility] MPV 10.7 fL 7.4 - 10.4 06/24 [facility] Hct 42.0 % 36.0 - 06/24 MH 48.0 [facility] MCV 84.7 fL 80.0 - 06/24 98.0 [facility] MCH 27.4 pg 27.0 - 06/24 31.0 [facility] WBC 8.5 K/CMM 3.7 - 10.4 06/24 [facility] RBC 4.95 M/CMM 4.20 - 06/24 MH 5.40 /2016 [facility] Hgb 13.6 g/dL 12.0 - 06/24 16.0 [facility] CHEM PANEL A/G Ratio 0.8 0.7 - 1.6 06/23 [facility] CHEM PANEL B/C Ratio 4 6 - 25 06/23 [facility] CHEM PANEL Globulin 3.5 g/dL 2.7 - 4.2 06/23 [facility] CHEM PANEL AGAP 12.6 meq/L 10.0 - 06/23 20.0 [facility] CHEM PANEL eGFR 101 06/23 Result Comment: The eGFR is calculated using the CKD-EPI formula. In most young, healthy individuals the eGFR will be >90 mL/ min/1.73m2. The eGFR declines with age. An eGFR of 60-89 may be normal in mL/min/1. some populations, particularly the elderly, for whom the CKD-EPI formula has not been extensively validated. Use of the eGFR is not recommended in the following populations: [place] [address] Individuals with unstable creatinine concentrations, including patients and those with serious co-morbid conditions. Patients with extremes in muscle mass or diet. The data above are obtained from the National Kidney Disease Education Program (NKDEP) which additionally recommends that when the eGFR is used in patients with extremes of body mass index for purposes of drug dosing, the eGFR should be multiplied by the estimated BMI. CHEM PANEL CO2 25 meq/L 24 - 32 06/23 [facility] CHEM PANEL Chloride Lvl 106 meq/L 95 - 109 06/23 [facility] CHEM PANEL AST 15 unit/L 0 - 37 06/23 [facility] CHEM PANEL Alk Phos 77 unit/L 39 - 136 06/23 [facility] CHEM PANEL ALT 15 unit/L 0 - 65 06/23 [facility] CHEM PANEL Bili Total 0.3 mg/dL 0.2 - 1.3 06/23 [facility] CHEM PANEL Potassium 3.6 meq/L 3.5 - 5.1 06/23 [facility] CHEM PANEL Sodium Lvl 140 meq/L 135 - 145 06/23 [facility] CHEM PANEL Albumin Lvl 2.9 g/dL 3.5 - 5.0 06/23 [facility] CHEM PANEL Calcium Lvl 8.8 mg/dL 8.5 - 10.5 06/23 [facility] CHEM PANEL Total 6.4 g/dL 6.4 - 8.4 06/23 [facility] CHEM PANEL Creatinine 0.70 mg/dL 0.50 - 06/23 MH Lvl 1.40 [facility] CHEM PANEL BUN 3 mg/dL 7 - 22 06/23 [facility] CHEM PANEL Glucose Lvl 103 mg/dL 70 - 99 06/23 [facility] CHEM PANEL Magnesium 1.8 mg/dL 1.8 - 2.4 06/23 Lv [facility] HEMATOLOGY MPV 11.1 fL 7.4 - 10.4 06/23 [facility] HEMATOLOGY MCV 84.3 fL 80.0 - 06/23 98.0 [facility] HEMATOLOGY MCHC 32.8 g/dL 32.0 - 06/23 MH 36.0 [facility] HEMATOLOGY MCH 27.6 pg 27.0 - 06/23 31. [facility] HEMATOLOGY Hct 45.7 % 36.0 - 06/23 MH 48.0 [facility] HEMATOLOGY WBC 9.5 K/CMM 3.7 - 10.4 06/23 [facility] HEMATOLOGY Hgb 15.0 g/dL 12.0 - 06/23 MH 16.0 /2016 [facility] HEMATOLOGY RBC 5.42 M/CMM 4.20 - 06/23 MH 5.40 /2016 [facility] HEMATOLOGY Platelet 213 K/CMM 133 - 450 06/23 [facility] HEMATOLOGY RDW 16.1 % 11.5 - 06/23 MH 14.5 /2016 [facility] HEMATOLOGY Basophils # 0.0 K/CMM 0.0 - 0.2 06/23 [facility] HEMATOLOGY Eosinophils 0.2 K/CMM 0.0 - 0.5 06/23 MH # /2017 [facility] HEMATOLOGY Eosinophils 2.2 % 0.0 - 4.0 06/23 [facility] HEMATOLOGY Segs-Bands # 6.5 K/CMM 1.5 - 8.1 06/23 [facility] HEMATOLOGY Basophils 0.2 % 0.0 - 1.0 06/23 [facility] HEMATOLOGY Monocytes # 0.7 K/CMM 0.0 - 0.8 06/23 [facility] HEMATOLOGY Lymphocytes 2.1 K/CMM 1.0 - 5.5 06/23 # /2017 [facility] HEMATOLOGY Segs 68.1 % 45.0 - 06/23 MH 75.0 /2016 [facility] HEMATOLOGY Monocytes 6.9 % 2.0 - 12.0 06/23 [facility] HEMATOLOGY Lymphocytes 22.6 % 20.0 - 06/23 40.0 /2016 [facility] CHEM PANEL Magnesium 1.8 mg/dL 1.8 - 2.4 06/22 Lvl [facility] ELECTROLYT AGAP 10.9 meq/L 10.0 - 06/22 ES 20.0 [facility] ELECTROLYT B/C Ratio 6 6 - 25 06/22 [facility] ELECTROLYT Globulin 3.5 g/dL 2.7 - 4.2 06/22 [facility] ELECTROLYT A/G Ratio 0.9 0.7 - 1.6 06/22 [facility] ELECTROLYT eGFR 86 06/22 Result Comment: The eGFR is calculated using the CKD-EPI formula. In most young, healthy individuals the eGFR will be >90 mL/ min/1.73m2. The eGFR declines with age. An eGFR of 60-89 may be normal in ES mL/min/1.7 /2017 some populations, particularly the elderly, for whom the CKD-EPI formula has not been extensively validated. Use of the eGFR is not recommended in the following populations: [facility] 3m2 Individuals with unstable creatinine concentrations, including patients and those with serious co-morbid conditions. Patients with extremes in muscle mass or diet. The data above are obtained from the National Kidney Disease Education Program (NKDEP) which additionally recommends that when the eGFR is used in patients with extremes of body mass index for purposes of drug dosing, the eGFR should be multiplied by the estimated BMI. ELECTROLYT Sodium Lvl 140 meq/L 135 - 145 06/22 [facility] ELECTROLYT Potassium 3.9 meq/L 3.5 - 5.1 06/22 [facility] Lvl [facility] ELECTROLYT Albumin Lvl 3.2 g/dL 3.5 - 5.0 06/22 [facility] ELECTROLYT ALT 20 unit/L 0 - 65 06/22 [facility] ELECTROLYT Total 6.7 g/dL 6.4 - 8.4 06/22 [facility] ELECTROLYT AST 13 unit/L 0 - 37 06/22 [facility] ELECTROLYT Calcium Lvl 9.0 mg/dL 8.5 - 10.5 06/22 [facility] ELECTROLYT Chloride Lvl 106 meq/L 95 - 109 06/22 [facility] ELECTROLYT CO2 27 meq/L 24 - 32 06/22 [facility] ELECTROLYT Bili Total 0.3 mg/dL 0.2 - 1.3 06/22 [facility] ELECTROLYT Alk Phos 81 unit/L 39 - 136 06/22 [facility] ELECTROLYT BUN 5 mg/dL 7 - 22 06/22 [facility] ELECTROLYT Creatinine 0.80 mg/dL 0.50 - 06/22 [facility] Lvl 1.40 [facility] ELECTROLYT Glucose Lvl 107 mg/dL 70 - 99 06/22 [facility] HEMATOLOGY Lymphocytes 28.1 % 20.0 - 06/22 40.0 [facility] HEMATOLOGY Segs 57.4 % 45.0 - 06/22 75.0 [facility] HEMATOLOGY Monocytes 10.6 % 2.0 - 12.0 06/22 [facility] HEMATOLOGY Eosinophils 3.4 % 0.0 - 4.0 06/22 [facility] HEMATOLOGY Lymphocytes 2.2 K/CMM 1.0 - 5.5 06/22 MH # /2016 [facility] Monocytes # 0.8 K/CMM 0.0 - 0.8 06/22 [facility] Basophils 0.5 % 0.0 - 1.0 06/22 [facility] Segs-Bands # 4.4 K/CMM 1.5 - 8.1 06/22 [facility] Eosinophils 0.3 K/CMM 0.0 - 0.5 06/22 MH # /2016 [facility] Hgb 14.7 g/dL 12.0 - 06/22 MH 16.0 /2016 [facility] Hct 46.1 % 36.0 - 06/22 MH 48.0 [facility] MCV 85.2 fL 80.0 - 06/22 98.0 [facility] Platelet 188 K/CMM 133 - 450 06/22 [facility] MPV 11.0 fL 7.4 - 10.4 06/22 [facility] MCHC 31.9 g/dL 32.0 - 06/22 36.0 [facility] RDW 16.1 % 11.5 - 06/22 MH 14.5 /2016 [facility] MCH 27.2 pg 27.0 - 06/22 31.0 [facility] RBC 5.41 M/CMM 4.20 - 06/22 5.40 /2016 [facility] WBC 7.7 K/CMM 3.7 - 10.4 06/22 [facility] Abdomen 2 Abdomen 2 Abdomen 2 views DX 06/22 - views DX views - [facility] CLINICAL INDICATION: Bowel Obstruction Read by: Pedro Nguyen MD Dictated Date/time: 06/22/16 15:13 Electronically Signed by: Pedro Nguyen MD 06/22/16 15:16 FINAL REPORT COMPARISON: 06/21/2016 FINDINGS: There is mild increase in distention of a few of the small bowel loops centrally in the abdomen. There remains air and stool in the colon. A few air- fluid levels are noted on the upright study. No tract calculi are evident. No free air is noted underneath the hemidiaphragms. Lung bases are clear. No significant bony abnormality is noted. IMPRESSION: Findings may reflect focal ileus versus partial small bowel obstruction. SL: [id number] CHEM PANEL Magnesium 1.6 mg/dL 1.8 - 2.4 06/21 [facility] CHEM PANEL Total 6.5 g/dL 6.4 - 8.4 06/21 [facility] CHEM PANEL Alk Phos 80 unit/L 39 - 136 06/21 [facility] CHEM PANEL Bili Total 0.4 mg/dL 0.2 - 1.3 06/21 [facility] CHEM PANEL ALT 17 unit/L 0 - 65 06/21 [facility] CHEM PANEL Albumin Lvl 3.1 g/dL 3.5 - 5.0 06/21 [facility] CHEM PANEL AST 8 unit/L 0 - 37 06/21 [facility] CHEM PANEL B/C Ratio 6 6 - 25 06/21 [facility] CHEM PANEL Globulin 3.4 g/dL 2.7 - 4.2 06/21 [facility] CHEM PANEL A/G Ratio 0.9 0.7 - 1.6 06/21 [facility] Abdomen 2 Abdomen 2 Study: Abdomen, 3 views 06/21 - views DX views DX - [facility] Clinical Indication: Bowel Obstruction Read by: Librado Vincent MD Dictated Date/time: 06/21/16 10:20 Electronically Signed by: Librado Vincent MD 06/21/16 10:21 FINAL REPORT Comparison: Abdomen x-rays from 06/20/2016 FINDINGS: Multiple views of the abdomen show a nonobstructive bowel gas pattern. There has been interval removal of nasogastric tube. Surgical clips in the right upper quadrant is seen. No suspicious ab dominal calcifications are seen. Osseous structures are stable. IMPRESSION: Nonobstructive bowel gas pattern. SL: [id number] CHEM PANEL Phosphorus 2.8 mg/dL 2.5 - 4.5 06/20 [facility] HEMATOLOGY PT 13.3 s 12.0 - 06/20 14.7 /2016 [facility] HEMATOLOGY INR 0.99 0.85 - 06/20 1. [facility] HEMATOLOGY Large Plt Moderate None Seen 06/20 [facility] *ABN* (06/20/16 4:06 AM) HEMATOLOGY Target Cell Moderate None Seen 06/20 [facility] *ABN* (06/20/16 4:06 AM) LIPIDS LDL 102 mg/dL <=99 mg/dL 06/20 (Calculated) [facility] LIPIDS VLDL 29 06/20 [facility] LIPIDS Chol 191 mg/dL <=199 06/20 mg/dL [facility] LIPIDS Trig 145 mg/dL <=149 06/20 mg/dL [facility] LIPIDS HDL 60 mg/dL >=61 mg/dL 06/20 [facility] LIPIDS CHD Risk 3.18 3.90 - 06/20 5.80 /2016 [facility] SPECIAL Hgb A1C 5.7 % <=5.6 % 06/20 CHEMISTRY [facility] Abdomen 2 Abdomen 2 Abdomen 2 views DX 06/20/2016 3:00 AM [employer] 06/20 - views DX views - [facility] Ordering Physician: Sebastien Roman MD Read by: Nakul Mosquera MD Dictated Date/time: 06/20/16 07:51 CLINICAL INDICATION: Bowel Obstruction; Electronically Signed by: Nakul Mosquera MD 06/20/16 07:53 FINAL REPORT COMPARISON: October 2010 TECHNIQUE: Supine and upright AP views of the abdomen were obtained. FINDINGS: NG tube is appropriately positioned. Air and stool are visualized throughout the colon and rectum. No dilated loops of small bowel with air-fluid levels are visualized. No gross free air is present. No unexpected radiopaque foreign body is present. Right proximal femoral intertrochanteric heterogeneously sclerotic focus measuring about 2 cm in size is old, suggesting old bony infarct or enchondroma. Otherwise, bones are normal. Visualized lung bases are clear. IMPRESSION: No evidence of bowel obstruction or gross pneumoperitoneum. SL: [id number] CHEM PANEL Bili Direct 0.1 mg/dL 0.0 - 0.3 06/19 [facility] CHEM PANEL Lipase Lvl 86 unit/L 73 - 393 06/19 [facility] Chest 1 v Chest 1 v Patient Name: GERALD CUETO 06/19 - for for /2016 - [facility] Placement Placement DX : 1965; Age: 50 years y/o Female DX MR: [id number] Read by: Librado Buckner MD Dictated Date/time: 06/19/16 07:19 Electronically Signed by: Librado Buckner MD 06/19/16 07:21 FINAL REPORT Study: Chest 1 v for Placement DX 06/19/2016 5:46 AM [employer] Ordering Physician: Jose Esparza MD Clinical Indication: Line Placement; NG tube placement Comparison: 11/02/2010 abdominal series Discussion: A nasogastric tube courses into the left upper quadrant of the abdomen, its tip not seen. A 1.2 cm nodule projects over the left middle lung field. The lungs are otherwise clear. No large collections of pleural fluid. The cardiac silhouette and pulmonary vasculature are normal. No significant bony abnormalities. Solitary surgical clip in the right upper quadrant of the abdomen. IMPRESSION: 1. Position of the nasogastric tube is described above. 2. 1.2 cm nodule in the left middle lung field. CT scan of the chest with contrast is recommended for further evaluation. SL: [id number] HEMATOLOGY Basophils # 0.0 K/CMM 0.0 - 0.2 06/19 [facility] HEMATOLOGY Target Cell Moderate None Seen 06/19 [facility] *ABN* (06/18/16 11:57 PM) HEMATOLOGY Plt Morph Clumped 1 06/19 Result Comment: Due [facility] (06/18/16 11:57 PM) to occassional clumps, the actual count may be slightly higher. CARDIAC Troponin-I null 0.00 - 06/19 ENZYMES 0.40 [facility] ENDOCRINOL S Preg Negative Negative 06/19 OGY [facility] *NA* (06/18/16 11:46 PM) Abdomen/Pe Abdomen/Pelv CT ABDOMEN AND PELVIS WITHOUT CONTRAST DATED 2016. 06/19 - lvis wo IV is wo IV /2016 - [facility] contrast contrast CT CT CLINICAL INDICATION: Acute lower abdominal pain. Read by: Karri Quispe MD Dictated Date/time: 06/19/16 04:16 Electronically Signed by: Karri Quispe MD 06/19/16 04:34 FINAL REPORT COMPARISON: CT abdomen dated 10/30/2010 TECHNIQUE: A CT of the abdomen and pelvis was performed using helical images from the thoracic outlet through the pubic symphysis without bowel or intravenous contrast. Sagittal and coronal reconstructions were performed. CT Radiation Dose: LDB=532 mGy-cm FINDINGS: SOLID ORGANS: No acute CT abnormalities of the liver, spleen, pancreas, adrenal glands or kidneys are detected. There is no CT evidence of acute renal collecting system obstruction or calcified renal collecting system stone. BILIARY: The gallbladder is normally distended. No significant biliary ductal dilatation is detected. BOWEL: Bowel assessment is limited by the absence of bowel contrast. A dilated air and fluid-filled segment of jejunum is identified in the left mid abdomen with mild injection of the adjacent mesenteri c fat. No additional small bowel dilatation is identified. The terminal segment of the ileum appears to demonstrate wall thickening. There is no evidence of appendicitis or diverticulitis. PERITONEUM: No free intraperitoneal air or significant free intraperitoneal fluid. RETROPERITONEUM: The abdominal aorta is normal in caliber. No retroperitoneal mass or adenopathy. PELVIS: The patient is status post hysterectomy. No suspicious adnexal masses are noted. Bladder assessment is limited by low bladder volume. LOWER CHEST: The lung bases appear clear of acute disease. ADDITIONAL COMMENTS: Multifocal fat-containing ventral hernias are identified above the umbilicus. IMPRESSION: 1. A dilated loop of jejunum is identified in the left midabdomen with associated injection of the adjacent mesenteric fat. Acute obstruction related to adhesions, volvulus or internal hernia would be difficult to exclude with this appearance. There is no evidence of bowel wall thickening or pneumatosis. 2. The wall of the terminal segment of the ileum appears thickened, a finding that could indicate infectious or inflammatory enteritis. No significant inflammatory changes are identified in the adjacent mesenteric fat. 3. Multifocal fat-containing ventral hernias are identified of both the umbilicus. SL:131 URINE AND UA <=1.0 0.1 - 1.0 06/19 STOOL Urobilinogen mg/dL [facility] URINE AND UA Color Yellow 06/19 STOOL [facility] URINE AND UA Nitrite Positive Negative 06/19 STOOL [facility] *ABN* (06/18/16 8:37 PM) URINE AND UA Bili Negative Negative 06/19 STOOL [facility] *NA* (06/18/16 8:37 PM) URINE AND UA Blood Small Negative 06/19 STOOL [facility] *ABN* (06/18/16 8:37 PM) URINE AND UA Ketones Negative Negative 06/19 [facility] mg/dL mg/dL [facility] URINE AND UA Protein Negative Negative 06/19 [facility] mg/dL mg/dL [facility] URINE AND UA Glucose Negative Negative 06/19 [facility] mg/dL mg/dL [facility] URINE AND UA pH 5.0 5.0 - 8.0 06/19 STOOL [facility] URINE AND UA Turbidity Clear Clear 06/19 STOOL [facility] (06/18/16 8:37 PM) URINE AND UA Spec Grav 1.015 <=1.030 06/19 STOOL [facility] URINE AND UA Bacteria Few /HPF None Seen 06/19 [facility] /HPF [facility] URINE AND UA Leuk Est Negative Negative 06/19 [facility] (06/18/16 8:37 PM) URINE AND UA Sq Epi Few /LPF Few /LPF 06/19 [facility] URINE AND UA Mucus Few /LPF None Seen 06/19 [facility] /LPF [facility] URINE CHEM U Preg Negative Negative 06/19 [facility] (06/18/16 8:37 PM) Spine Spine lumbar Patient Name: GERALD CUETO 08/02 - lumbar 2 2 or 3 views - [facility] or 3 views DX : 1965; Age: 49 years y/o Female DX MR: [id number] Read by: Ramesh Weinberg MD Dictated Date/time: 08/02/15 14:35 Electronically Signed by: Ramesh Weinberg MD 08/02/15 14:37 FINAL REPORT Study: Spine lumbar 2 or 3 views DX 08/02/2015 11:34 AM [employer] Ordering Physician: Shanique Mcdaniel Comparison: None Clinical Indication: Back pain lumbar region left thigh groin pain; 3 views of the lumbar spine demonstrate narrowing of the disc space at L5- S1 associated with vacuum phenomena consistent with degenerative disc disease. Lumbar vertebral body heights and interspaces are otherwise well-maintained. Ventral and dorsal marginal spurring are noted at L5-S1. Degenerative arthropathy is noted at the L5-S1 apophyseal joints. Vascular clips are noted at the right upper quadran t projected over right side of L4 and the inferior left SI joint. There is no spondylolysis or spondylolisthesis noted. Vascular calcification is noted at the abdominal aorta. Retained fecal material is present at the rectum and cecum. IMPRESSION: 1. Degenerative disc disease L5-S1. SL: [id number] Femur Femur series Patient Name: GERALD CUETO 08/02 - series DX DX /2015 - [facility] : 1965; Age: 49 years y/o Female MR: [id number] Read by: Ramesh Weinberg MD Dictated Date/time: 08/02/15 14:33 Electronically Signed by: Ramesh Weinberg MD 08/02/15 14:35 FINAL REPORT Study: Femur series DX 08/02/2015 11:33 AM [employer] Ordering Physician: Shanique Mcdaniel Comparison: None Clinical Indication: Left thigh and groin pain; 2 views of the left femur demonstrate no acute fracture, dislocation or osteolysis. The left hip joint space is well maintained. Slight narrowing of the medial joint compartment space of the left knee i s noted. A vascular clip is noted projected over the left SI joint. SL: [id number] Vital Signs Vital Sign Value Date Comments Source Temperature Oral (F) 98.4 F 12/11/2017 [facility] Heart Rate 79 12/11/2017 [facility] Respitory Rate 18 12/11/2017 [facility] Systolic (mm Hg) 111 12/11/2017 [facility] Diastolic (mm Hg) 70 12/11/2017 [facility] Weight 58.182 12/11/2017 [facility] Temperature Oral (F) 98.7 F 12/11/2017 [facility] BMI Calculated 20.09 12/11/2017 [facility] Height 170.18 cm 12/11/2017 [facility] Systolic (mm Hg) 124 12/11/2017 [facility] Diastolic (mm Hg) 82 12/11/2017 [facility] Heart Rate 94 12/11/2017 [facility] Respitory Rate 20 12/11/2017 [facility] Respitory Rate 18 08/18/2017 [facility] Systolic (mm Hg) 121 08/18/2017 [facility] Diastolic (mm Hg) 62 08/18/2017 [facility] Heart Rate 68 08/18/2017 [facility] Temperature Oral (F) 98.5 F 08/18/2017 [facility] Weight 61.364 08/18/2017 [facility] Temperature Oral (F) 98.6 F 08/18/2017 [facility] Respitory Rate 20 08/18/2017 [facility] Heart Rate 71 08/18/2017 [facility] Systolic (mm Hg) 110 08/18/2017 [facility] Diastolic (mm Hg) 65 08/18/2017 [facility] BMI Calculated 23.22 08/18/2017 [facility] Height 162.56 cm 08/18/2017 [facility] Systolic (mm Hg) 130 07/01/2016 [facility] Diastolic (mm Hg) 72 07/01/2016 [facility] Temperature Oral (F) 98.2 F 07/01/2016 [facility] Respitory Rate 20 07/01/2016 [facility] Heart Rate 56 07/01/2016 [facility] Heart Rate 55 07/01/2016 [facility] Temperature Oral (F) 98.3 F 07/01/2016 [facility] Systolic (mm Hg) 134 07/01/2016 [facility] Diastolic (mm Hg) 72 07/01/2016 [facility] Respitory Rate 18 07/01/2016 [facility] Temperature Oral (F) 97.8 F 07/01/2016 [facility] Systolic (mm Hg) 151 07/01/2016 [facility] Diastolic (mm Hg) 89 07/01/2016 [facility] Heart Rate 58 07/01/2016 [facility] Respitory Rate 20 07/01/2016 [facility] Weight 63.636 06/29/2016 [facility] Height 170.18 cm 06/29/2016 [facility] BMI Calculated 21.97 06/29/2016 [facility] Systolic (mm Hg) 142 06/25/2016 [facility] Diastolic (mm Hg) 84 06/25/2016 [facility] Respitory Rate 18 06/25/2016 [facility] Heart Rate 80 06/25/2016 [facility] Temperature Oral (F) 97.5 F 06/25/2016 [facility] Systolic (mm Hg) 144 06/25/2016 [facility] Diastolic (mm Hg) 81 06/25/2016 [facility] Temperature Oral (F) 97.8 F 06/25/2016 [facility] Respitory Rate 18 06/25/2016 [facility] Heart Rate 75 06/25/2016 [facility] Systolic (mm Hg) 142 06/25/2016 [facility] Diastolic (mm Hg) 84 06/25/2016 [facility] Respitory Rate 18 06/25/2016 [facility] Heart Rate 70 06/25/2016 [facility] Temperature Oral (F) 97.7 F 06/25/2016 [facility] Weight 70.455 06/19/2016 [facility] Height 170.18 cm 06/19/2016 [facility] BMI Calculated 24.33 06/19/2016 [facility] Weight 70.455 06/19/2016 [facility] BMI Calculated 24.33 06/19/2016 [facility] Height 170.18 cm 06/19/2016 [facility] Heart Rate 91 01/18/2016 [facility] Temperature Oral (F) 97.9 F 01/18/2016 [facility] Systolic (mm Hg) 119 01/18/2016 [facility] Diastolic (mm Hg) 67 01/18/2016 [facility] Respitory Rate 16 01/18/2016 [facility] BMI Calculated 23.54 01/18/2016 [facility] Weight 68.182 01/18/2016 [facility] Height 170.18 cm 01/18/2016 [facility] Respitory Rate 24 01/18/2016 [facility] Heart Rate 99 01/18/2016 [facility] Temperature Oral (F) 98.0 F 01/18/2016 [facility] Systolic (mm Hg) 136 01/18/2016 [facility] Diastolic (mm Hg) 104 01/18/2016 [facility] Temperature Oral (F) 98.2 F 08/02/2015 [facility] Heart Rate 91 08/02/2015 [facility] Systolic (mm Hg) 104 08/02/2015 [facility] Diastolic (mm Hg) 73 08/02/2015 [facility] Respitory Rate 18 08/02/2015 [facility] Systolic (mm Hg) 126 08/02/2015 [facility] Diastolic (mm Hg) 81 08/02/2015 [facility] Heart Rate 80 08/02/2015 [facility] Respitory Rate 18 08/02/2015 [facility] Weight 72.727 08/02/2015 [facility] Temperature Oral (F) 98.6 F 08/02/2015 [facility] Respitory Rate 16 08/02/2015 [facility] Heart Rate 86 08/02/2015 [facility] Systolic (mm Hg) 123 08/02/2015 [facility] Diastolic (mm Hg) 85 08/02/2015 [facility] Encounters Location Location Encounter Encounter Reason Attending ADM DC Status Source Details Type Number For Provider Date Date Visit [facility] [place] [id number] Briseida 08/02 08/02 [facility] Emergency [place] /2015 [facility] [place] [id number] Habacuc 01/17 01/17 [facility] Emergency Nilson /2015 [facility] Inpatient [id number] Brandon 06/18 06/25 [facility] /2016 [facility] Inpatient [id number] Brandon 06/28 07/01 [facility] /2016 [facility] Outpatient [id number] ARIAS 07[facility] Emergency [id number] Makayla [place] 08/18 08/18 [facility] /2017 [facility] [id number] Darryn 12/11 12/11 Deny [place] /2017 [facility] Procedures Procedure Code Date Perfomer Comments Source Hysterectomy [id number] [facility]terine [id number] The fibroidectomy [facility] Hysterectomy [id number] [facility] Uterine [id number] [facility] fibroidectomy
--- OUTSIDE RECORDS SUMMARY | 2018-05-12 02:37 | XMS REPORT | Summary of Care ---
:1965 Author Organization [facility] Address [address], [place] [address]- Encounter HQ Stephanier_alyssa(FIN) [id number] Date(s): 06/18/16 - 06/25/[address] [address]- Discharge Disposition: Home or Self Care Attending Physician: Brandon Pino MD Admitting Physician: Brandon Pino MD Vital Signs Most recent to oldest 1 2 3 [Reference Range]: Height 170.18 cm 170.18 cm (06/19/16 8:00 AM) (06/18/16 6:45 PM) Temperature Oral [96.4-99.1 97.5 DegF 97.8 DegF 97.7 DegF DegF] (06/25/16 4:00 PM) (06/25/16 12:00 PM) (06/25/16 8:00 AM) Blood Pressure [90-140/60-90 142/84 mmHg 144/81 mmHg 142/84 mmHg mmHg] *HI* *HI* *HI* (06/25/16 4:00 PM) (06/25/16 12:00 PM) (06/25/16 8:00 AM) Respiratory Rate [14-20 BRMIN] 18 BRMIN 18 BRMIN 18 BRMIN (06/25/16 4:00 PM) (06/25/16 12:00 PM) (06/25/16 8:00 AM) Peripheral Pulse Rate [60-100 80 bpm 75 bpm 70 bpm bpm] (06/25/16 4:00 PM) (06/25/16 12:00 PM) (06/25/16 8:00 AM) Weight 70.455 kg 70.455 kg (06/19/16 8:00 AM) (06/18/16 6:45 PM) Body Mass Index 24.33 m2 24.33 m2 (06/19/16 8:00 AM) (06/18/16 6:45 PM) Problem List Condition Effective Dates Status Health Status Informant Mass of abdomen(Confirmed) Resolved Abdominal pain(Confirmed) Active Bipolar 1 disorder, Resolved depressed(Confirmed) Nausea and vomiting(Confirmed) Active Pain(Confirmed) Active Allergies, Adverse Reactions, Alerts Substance Reaction Severity Status aspirin Active iodine topical Active penicillin Active Medications BD Normal Saline Flush 10 mL, Route: IVP, Drug Form: INJ, PRN, PRN Line Flush, Start date: 06/19/16 5: 01:00 RELAY TESTER, Duration: 30 day, Stop date: 07/19/16 5:00:00 RELAY TESTER Notes: (Same as: BD Posiflush) Start Date: 06/19/16 Stop Date: 06/25/16 Status: DiscontinuedcefTRIAXone + sodium chloride 0.9% INJ 100 mL 1 gm, Route: IVPB, ONCE, Dosing Weight 70.455, kg, Priority: STAT, Start date: 06/19/16 4:59:00 RELAY TESTER,Stop date: 06/19/16 4:59:00 RELAY TESTER Notes: (Same As: Rocephin).Use with 100 mL NS and infuse over 30 min MEDICATION WASTE Product Size: 1000 mgProduct Wasted: ___ mg Start Date: 06/19/16 Stop Date: 06/19/16 Status: CompletedColace 100 mg oral capsule 100 mg=1 cap, PO, BID, PRN Constipation, # 20 cap, 0 Refill(s) Start Date: 06/25/16 Status: PerkhahW8V 1/2NS 1,000 mL 1,000 mL, Rate: 125 ml/hr, Infuse over: 8 hr, Route: IV, Dosing Weight 70.455 kg , Total Volume: 1,000, Start date: 06/19/16 7:55:00 RELAY TESTER, Duration: 30 day, Stop date: 07/19/16 7:54:00 RELAY TESTER Start Date: 06/19/16 Stop Date: 06/25/16 Status: DiscontinuedDilaudid 0.5 mg, Route: IVP, ONCE, Dosing Weight 70.455, kg, Priority: STAT, Start date: 06/19/16 2:10:00 RELAY TESTER, Stop date: 06/19/16 2:10:00 RELAY TESTER Start Date: 06/19/16 Stop Date: 06/19/16 Status: CompletedDilaudid 0.5 mg, 0.5 mL, Route: IVP, Drug form: INJ, ONCE, Dosing Weight 70.455, kg, Priority: STAT, Start date: 06/19/16 5:46:00 RELAY TESTER, Stop date: 06/19/16 5:46:00 RELAY TESTER Start Date: 06/19/16 Stop Date: 06/19/16 Status: CompletedDuoNeb inhalation solution 3 ml, Route: INHALATION, Drug Form: SOLN, Dosing Weight 70.455, kg, PRN, PRN Respiratory Protocol, Start date: 06/19/16 7:55:00 RELAY TESTER, Duration: 30 day, Stop date: 07/19/16 7:54:00 RELAY TESTER Notes: (Same as: Duoneb) Start Date: 06/19/16 Stop Date: 06/25/16 Status: DiscontinuedhydrALAZINE 10 mg, 0.5 mL, Route: IVP, Drug form: INJ, Q4H, Dosing Weight 70.455, kg, PRN Hypertension, PLease give for sys BP >150, Start date: 06/19/16 7:56:00 RELAY TESTER, Duration: 30 day, Stop date: 07/19/16 7:55:00 RELAY TESTER Notes: (Same as: Apresoline)Push over 5 minutes Start Date: 06/19/16 Stop Date: 06/25/16 Status: Discontinuedlabetalol 20 mg, 4 mL, Route: IVP, Drug form: INJ, Q4H, Dosing Weight 70.455, kg, PRN Hypertension, Start date: 06/19/16 7:55:00 RELAY TESTER, Duration: 30 day, Stop date: 09/29 7:54:00 RELAY TESTER Notes: (Same as: Normodyne, Trandate)Push over 2 minutes Give bolus over 2-3 minutes. Start Date: 06/19/16 Stop Date: 06/25/16 Status: DiscontinuedLovenox 40 mg, 0.4 mL, Route: SUB-Q, Drug form: INJ, [id number], Dosing Weight 70.455, kg , Priority: NOW, Start date: 06/19/16 7:55:00 RELAY TESTER, Duration: 30 day, Stop date: 07/18/16 7:55:00 RELAY TESTER Notes: (Same as: Lovenox) Start Date: 06/19/16 Stop Date: 06/25/16 Status: Discontinuedmeloxicam 15 mg oral tablet 15 mg=1 tab, PO, Daily, # 30 tab, 0 Refill(s) Start Date: 06/20/16 Stop Date: 06/25/16 Status: Discontinuedmorphine Sulfate 1 mg, 0.25 mL, Route: IVP, Drug form: SOLN, Q3H, Dosing Weight 70.455, kg, PRN Pain Score 4-6, Startdate: 06/19/16 7:55:00 RELAY TESTER, Duration: 30 day, Stop date: 7:54:00 RELAY TESTER Notes: (Same as:MORPhine Sulfate) Start Date: 06/19/16 Stop Date: 06/25/16 Status: Discontinuedmorphine Sulfate 1 mg, 0.25 mL, Route: IVP, Drug form: SOLN, ONCE, Start date: 06/20/16 23:21:00 RELAY TESTER, Stop date: 06/20/16 23:21:00 RELAY TESTER Notes: (Same as:MORPhine Sulfate) Start Date: 06/20/16 Stop Date: 06/20/16 Status: Completedmorphine Sulfate 2 mg, 0.5 mL, Route: IVP, Drug form: SOLN, ONCE, Dosing Weight 70.455, kg, Priority: STAT, Start date: 06/18/16 23:39:00 RELAY TESTER, Stop date: 06/18/16 23:39:00 RELAY TESTER Notes: (Same as:MORPhine Sulfate) Start Date: 06/18/16 Stop Date: 06/19/16 Status: Completednicotine 21 mg, 1 patch, Route: TOP, Drug form: ERFILM, Daily, Dosing Weight 70.455, kg, Priority: NOW, Startdate: 06/21/16 11:31:00 RELAY TESTER, Duration: 30 day, Stop date: 9:00:00 RELAY TESTER Notes: (Same as: Habitrol)"Remove old patch before application of new patch "WASTE: F/P - P Waste Black; E - P Waste Black Start Date: 06/21/16 Stop Date: 06/25/16 Status: DiscontinuedNorco 10/325 oral tablet 1 tab, PO, Q4H, PRN for pain, # 24 tab, 0 Refill(s) Start Date: 06/20/16 Stop Date: 06/25/16 Status: DiscontinuedNS (Bolus) IV 1,000 mL, 1,000 ml/hr, Infuse Over: 1 hr, Route: IV, 1,000, Drug form: INJ, ONCE , Priority: STAT, Dosing Weight 70.455 kg, Start date: 06/18/16 23:38:00 RELAY TESTER, Duration: 1 doses or times, Stop date: 06/18/16 23:38:00 RELAY TESTER Start Date: 06/18/16 Stop Date: 06/19/16 Status: Completedondansetron 4 mg, 2 mL, Route: IVP, Drug form: INJ, Q4H, Dosing Weight 70.455, kg, PRN Nausea & Vomiting, Start date: 06/19/16 7:55:00 RELAY TESTER, Duration: 30 day, Stop date: 07/19/16 7:54:00 RELAY TESTER Notes: (Same as: Xu) MEDICATION WASTE Product Size: 4 mgProduct Wasted: ___ mg Start Date: 06/19/16 Stop Date: 06/25/16 Status: DiscontinuedProtonix 40 mg, Route: IVP, Drug form: INJ, Before Breakfast, Dosing Weight 70.455, kg, Priority: NOW, Start date: 06/19/16 7:55:00 RELAY TESTER, Duration: 30 day, Stop date: 7:30:00 RELAY TESTER Notes: For IV push reconstitute with 10 ml 0.9% sodium chloride and push over 2 minutes. (Same as: Protonix) Start Date: 06/19/16 Stop Date: 06/25/16 Status: DiscontinuedProtonix 20 mg oral enteric coated tablet 40 mg=2 tab, PO, Daily, # 60 tab, 0 Refill(s) Start Date: 06/25/16 Status: Orderedsodium chloride 0.9% 1000 ml INJ 1,000 mL 1,000 mL, Rate: 125 ml/hr, Infuse over: 8 hr, Route: IV, Dosing Weight 70.455 kg , Total Volume: 1,000, Start date: 06/19/16 4:43:00 RELAY TESTER, Duration: 30 day, Stop date: 07/19/16 4:42:00 RELAY TESTER Start Date: 06/19/16 Stop Date: 06/19/16 Status: DiscontinuedSodium Chloride 0.9% IV 250 mL, Route: IVPB, Start date: 06/19/16 5:01:00 RELAY TESTER, Duration: 30 day, Stop date: 07/19/16 5:00:00CST, PRN Line Flush Start Date: 06/19/16 Stop Date: 06/25/16 Status: DiscontinuedTylenol 1,000 mg, 2 tab, Route: PO, Drug form: TAB, Q8H, Dosing Weight 70.455, kg, PRN For Temp > 100.4 F, Start date: 06/19/16 7:55:00 RELAY TESTER, Duration: 30 day, Stop date: 07/19/16 7:54:00 RELAY TESTER Notes: Max acetaminophen 4000 mg/day (4 gm/day). (Same as: Tylenol Extra Strength) Start Date: 06/19/16 Stop Date: 06/25/16 Status: DiscontinuedTylenol with Codeine #3 oral tablet 2 tab, PO, Q4H, PRN Pain, X 7 day, # 50 tab, 0 Refill(s) Start Date: 06/25/16 Stop Date: 07/02/16 Status: OrderedXanax 2 mg oral tablet 2 mg=1 tab, PO, Bedtime, # 20 tab, 0 Refill(s) Start Date: 06/20/16 Stop Date: 06/25/16 Status: DiscontinuedZofran 2 mg, 1 mL, Route: IVP, Drug form: INJ, ONCE, Dosing Weight 70.455, kg, Priority : STAT, Start date: 06/18/16 23:40:00 RELAY TESTER, Stop date: 06/18/16 23:40:00 RELAY TESTER Notes: (Same as: Zofran) MEDICATION WASTE Product Size: 4 mgProduct Wasted: ___ mg Start Date: 06/18/16 Stop Date: 06/19/16 Status: CompletedZofran ODT 4 mg oral tablet, disintegrating 4 mg=1 tab, PO, BID, PRN Nausea and Vomiting, Dissolve tab under tongue, X 5 day , # 10 tab, 0 Refill(s) Start Date: 06/25/16 Stop Date: 06/30/16 Status: Ordered Results ELECTROLYTES Most recent to oldest 1 2 3 [Reference Range]: Sodium Lvl [135-145 mEq/L] 141 mEq/L 140 mEq/L 140 mEq/L (06/24/16 4:52 AM) (06/23/16 5:20 AM) (06/22/16 5:40 AM) Potassium Lvl [3.5-5.1 mEq/L] 3.5 mEq/L 3.6 mEq/L 3.9 mEq/L (06/24/16 4:52 AM) (06/23/16 5:20 AM) (06/22/16 5:40 AM) Chloride Lvl [95-109 mEq/L] 106 mEq/L 106 mEq/L 106 mEq/L (06/24/16 4:52 AM) (06/23/16 5:20 AM) (06/22/16 5:40 AM) CO2 [24-32 mEq/L] 27 mEq/L 25 mEq/L 27 mEq/L (06/24/16 4:52 AM) (06/23/16 5:20 AM) (06/22/16 5:40 AM) AGAP [10.0-20.0 mEq/L] 11.5 mEq/L 12.6 mEq/L 10.9 mEq/L (06/24/16 4:52 AM) (06/23/16 5:20 AM) (06/22/16 5:40 AM) CHEM PANEL Most recent to oldest 1 2 3 [Reference Range]: Creatinine Lvl [0.50-1.40 0.80 mg/dL 0.70 mg/dL 0.80 mg/dL mg/dL] (06/24/16 4:52 AM) (06/23/16 5:20 AM) (06/22/16 5:40 AM) eGFR 86 mL/min/1.73m2 1 101 mL/min/1.73m2 2 86 mL/min/1.73m2 3 *NA* *NA* *NA* (06/24/16 4:52 AM) (06/23/16 5:20 AM) (06/22/16 5:40 AM) BUN [7-22 mg/dL] 3 mg/dL 3 mg/dL 5 mg/dL *LOW* *LOW* *LOW* (06/24/16 4:52 AM) (06/23/16 5:20 AM) (06/22/16 5:40 AM) B/C Ratio [6-25] 4 6 6 *LOW* (06/22/16 5:40 AM) (06/21/16 5:22 AM) (06/23/16 5:20 AM) Glucose Lvl [70-99 mg/dL] 87 mg/dL 103 mg/dL 107 mg/dL (06/24/16 4:52 AM) *HI* *HI* (06/23/16 5:20 AM) (06/22/16 5:40 AM) Total Protein [6.4-8.4 6.4 g/dL 6.7 g/dL 6.5 g/dL g/dL] (06/23/16 5:20 AM) (06/22/16 5:40 AM) (06/21/16 5:22 AM) Albumin Lvl [3.5-5.0 g/dL] 2.9 g/dL 3.2 g/dL 3.1 g/dL *LOW* *LOW* *LOW* (06/23/16 5:20 AM) (06/22/16 5:40 AM) (06/21/16 5:22 AM) Globulin [2.7-4.2 g/dL] 3.5 g/dL 3.5 g/dL 3.4 g/dL (06/23/16 5:20 AM) (06/22/16 5:40 AM) (06/21/16 5:22 AM) A/G Ratio [0.7-1.6] 0.8 0.9 0.9 (06/23/16 5:20 AM) (06/22/16 5:40 AM) (06/21/16 5:22 AM) Calcium Lvl [8.5-10.5 9.0 mg/dL 8.8 mg/dL 9.0 mg/dL mg/dL] (06/24/16 4:52 AM) (06/23/16 5:20 AM) (06/22/16 5:40 AM) Phosphorus [2.5-4.5 mg/dL] 2.8 mg/dL (06/20/16 4:06 AM) Magnesium Lvl [1.8-2.4 1.8 mg/dL 1.8 mg/dL 1.6 mg/dL mg/dL] (06/23/16 5:20 AM) (06/22/16 5:40 AM) *LOW* (06/21/16 5:22 AM) ALT [0-65 unit/L] 15 unit/L 20 unit/L 17 unit/L (06/23/16 5:20 AM) (06/22/16 5:40 AM) (06/21/16 5:22 AM) AST [0-37 unit/L] 15 unit/L 13 unit/L 8 unit/L (06/23/16 5:20 AM) (06/22/16 5:40 AM) (06/21/16 5:22 AM) Alk Phos [39-136 unit/L] 77 unit/L 81 unit/L 80 unit/L (06/23/16 5:20 AM) (06/22/16 5:40 AM) (06/21/16 5:22 AM) Bili Total [0.2-1.3 mg/dL] 0.3 mg/dL 0.3 mg/dL 0.4 mg/dL (06/23/16 5:20 AM) (06/22/16 5:40 AM) (06/21/16 5:22 AM) Bili Direct [0.0-0.3 mg/dL] 0.1 mg/dL (06/19/16 12:47 AM) Lipase Lvl [73-393 unit/L] 86 unit/L (06/19/16 12:47 AM) 1Result Comment: The eGFR is calculated using the CKD-EPI formula. In most young , healthy individualsthe eGFR will be >90 mL/min/1.73m2. The eGFR declines with age. An eGFR of 60-89 may be normal in some populations, particularly the elderly, for whom the CKD-EPI formula has not been extensively validated. Use of the eGFR is not recommended in the following populations: Individuals with unstable creatinine concentrations, including patients and those with serious co-morbid conditions. Patients with extremes in muscle mass or diet. The data above are obtained from the National Kidney Disease Education Program ( NKDEP) which additionally recommends that when the eGFR is used in patients with extremes of body mass index for purposesof drug dosing, the eGFR should be multiplied by the estimated BMI.2Result Comment: The eGFR is calculated using the CKD-EPI formula. In most young, healthy individualsthe eGFR will be >90 mL/ min/1.73m2. The eGFR declines with age. An eGFR of 60-89 may be normal in some populations, particularly the elderly, for whom the CKD-EPI formula has not been extensively validated. Use of the eGFR is not recommended in the following populations: Individuals with unstable creatinine concentrations, including patients and those with serious co-morbid conditions. Patients with extremes in muscle mass or diet. The data above are obtained from the National Kidney Disease Education Program ( NKDEP) which additionally recommends that when the eGFR is used in patients with extremes of body mass index for purposesof drug dosing, the eGFR should be multiplied by the estimated BMI.3Result Comment: The eGFR is calculated using the CKD-EPI formula. In most young, healthy individualsthe eGFR will be >90 mL/ min/1.73m2. The eGFR declines with age. An eGFR of 60-89 may be normal in some populations, particularly the elderly, for whom the CKD-EPI formula has not been extensively validated. Use of the eGFR is not recommended in the following populations: Individuals with unstable creatinine concentrations, including patients and those with serious co-morbid conditions. Patients with extremes in muscle mass or diet. The data above are obtained from the National Kidney Disease Education Program ( NKDEP) which additionally recommends that when the eGFR is used in patients with extremes of body mass index for purposesof drug dosing, the eGFR should be multiplied by the estimated BMI.CARDIAC ENZYMES Most recent to oldest [Reference Range]: 1 2 3 Troponin-I [0.00-0.40 ng/mL] <0.02 ng/mL (06/18/16 11:46 PM) LIPIDS Most recent to oldest [Reference Range]: 1 2 3 CHD Risk [3.90-5.80] 3.18 *LOW* (06/20/16 4:06 AM) Chol [<=199 mg/dL] 191 mg/dL (06/20/16 4:06 AM) Trig [<=149 mg/dL] 145 mg/dL (06/20/16 4:06 AM) HDL [>=61 mg/dL] 60 mg/dL *LOW* (06/20/16 4:06 AM) LDL (Calculated) [<=99 mg/dL] 102 mg/dL *HI* (06/20/16 4:06 AM) VLDL 29 *NA* (06/20/16 4:06 AM) SPECIAL CHEMISTRY Most recent to oldest [Reference Range]: 1 2 3 Hgb A1C [<=5.6 %] 5.7 % *HI* (06/20/16 4:06 AM) ENDOCRINOLOGY Most recent to oldest [Reference Range]: 1 2 3 S Preg [Negative] Negative *NA* (06/18/16 11:46 PM) URINE CHEM Most recent to oldest [Reference Range]: 1 2 3 U Preg [Negative] Negative (06/18/16 8:37 PM) URINE AND STOOL Most recent to oldest [Reference Range]: 1 2 3 UA Turbidity [Clear] Clear (06/18/16 8:37 PM) UA Color Yellow *NA* (06/18/16 8:37 PM) UA pH [5.0-8.0] 5.0 (06/18/16 8:37 PM) UA Spec Grav [<=1.030] 1.015 (06/18/16 8:37 PM) UA Glucose [Negative mg/dL] Negative mg/dL *NA* (06/18/16 8:37 PM) UA Blood [Negative] Small *ABN* (06/18/16 8:37 PM) UA Ketones [Negative mg/dL] Negative mg/dL *NA* (06/18/16 8:37 PM) UA Protein [Negative mg/dL] Negative mg/dL (06/18/16 8:37 PM) UA Urobilinogen [0.1-1.0 mg/dL] <=1.0 mg/dL *NA* (06/18/16 8:37 PM) UA Bili [Negative] Negative *NA* (06/18/16 8:37 PM) UA Leuk Est [Negative] Negative (06/18/16 8:37 PM) UA Nitrite [Negative] Positive *ABN* (06/18/16 8:37 PM) UA Bacteria [None Seen /HPF] Few /HPF *NA* (06/18/16 8:37 PM) UA Sq Epi [Few /LPF] Few /LPF *NA* (06/18/16 8:37 PM) UA Mucus [None Seen /LPF] Few /LPF *NA* (06/18/16 8:37 PM) HEMATOLOGY Most recent to oldest 1 2 3 [Reference Range]: WBC [3.7-10.4 K/CMM] 8.5 K/CMM 9.5 K/CMM 7.7 K/CMM (06/24/16 4:52 AM) (06/23/16 5:20 AM) (06/22/16 5:40 AM) RBC [4.20-5.40 M/CMM] 4.95 M/CMM 5.42 M/CMM 5.41 M/CMM (06/24/16 4:52 AM) *HI* *HI* (06/23/16 5:20 AM) (06/22/16 5:40 AM) Hgb [12.0-16.0 g/dL] 13.6 g/dL 15.0 g/dL 14.7 g/dL (06/24/16 4:52 AM) (06/23/16 5:20 AM) (06/22/16 5:40 AM) Hct [36.0-48.0 %] 42.0 % 45.7 % 46.1 % (06/24/16 4:52 AM) (06/23/16 5:20 AM) (06/22/16 5:40 AM) MCV [80.0-98.0 fL] 84.7 fL 84.3 fL 85.2 fL (06/24/16 4:52 AM) (06/23/16 5:20 AM) (06/22/16 5:40 AM) MCH [27.0-31.0 pg] 27.4 pg 27.6 pg 27.2 pg (06/24/16 4:52 AM) (06/23/16 5:20 AM) (06/22/16 5:40 AM) MCHC [32.0-36.0 g/dL] 32.4 g/dL 32.8 g/dL 31.9 g/dL (06/24/16 4:52 AM) (06/23/16 5:20 AM) *LOW* (06/22/16 5:40 AM) RDW [11.5-14.5 %] 16.3 % 16.1 % 16.1 % *HI* *HI* *HI* (06/24/16 4:52 AM) (06/23/16 5:20 AM) (06/22/16 5:40 AM) Platelet [133-450 K/CMM] 193 K/CMM 213 K/CMM 188 K/CMM (06/24/16 4:52 AM) (06/23/16 5:20 AM) (06/22/16 5:40 AM) MPV [7.4-10.4 fL] 10.7 fL 11.1 fL 11.0 fL *HI* *HI* *HI* (06/24/16 4:52 AM) (06/23/16 5:20 AM) (06/22/16 5:40 AM) Segs [45.0-75.0 %] 52.8 % 68.1 % 57.4 % (06/24/16 4:52 AM) (06/23/16 5:20 AM) (06/22/16 5:40 AM) Lymphocytes [20.0-40.0 %] 31.5 % 22.6 % 28.1 % (06/24/16 4:52 AM) (06/23/16 5:20 AM) (06/22/16 5:40 AM) Monocytes [2.0-12.0 %] 12.1 % 6.9 % 10.6 % *HI* (06/23/16 5:20 AM) (06/22/16 5:40 AM) (06/24/16 4:52 AM) Eosinophils [0.0-4.0 %] 3.4 % 2.2 % 3.4 % (06/24/16 4:52 AM) (06/23/16 5:20 AM) (06/22/16 5:40 AM) Basophils [0.0-1.0 %] 0.2 % 0.2 % 0.5 % (06/24/16 4:52 AM) (06/23/16 5:20 AM) (06/22/16 5:40 AM) Segs-Bands # [1.5-8.1 K/CMM] 4.5 K/CMM 6.5 K/CMM 4.4 K/CMM (06/24/16 4:52 AM) (06/23/16 5:20 AM) (06/22/16 5:40 AM) Lymphocytes # [1.0-5.5 K/CMM] 2.7 K/CMM 2.1 K/CMM 2.2 K/CMM (06/24/16 4:52 AM) (06/23/16 5:20 AM) (06/22/16 5:40 AM) Monocytes # [0.0-0.8 K/CMM] 1.0 K/CMM 0.7 K/CMM 0.8 K/CMM *HI* (06/23/16 5:20 AM) (06/22/16 5:40 AM) (06/24/16 4:52 AM) Eosinophils # [0.0-0.5 K/CMM] 0.3 K/CMM 0.2 K/CMM 0.3 K/CMM (06/24/16 4:52 AM) (06/23/16 5:20 AM) (06/22/16 5:40 AM) Basophils # [0.0-0.2 K/CMM] 0.0 K/CMM 0.0 K/CMM (06/23/16 5:20 AM) (06/18/16 11:57 PM) Target Cell [None Seen] Moderate Moderate *ABN* *ABN* (06/20/16 4:06 AM) (06/18/16 11:57 PM) Plt Morph Clumped 1 (06/18/16 11:57 PM) Large Plt [None Seen] Moderate *ABN* (06/20/16 4:06 AM) PT [12.0-14.7 seconds] 13.3 seconds (06/20/16 4:06 AM) INR [0.85-1.17] 0.99 (06/20/16 4:06 AM) 1Result Comment: Due to occassional clumps, the actual count may be slightly higher. Immunizations No data available for this section Procedures Procedure Date Related Diagnosis Body Site Hysterectomy Uterine fibroidectomy Social History Social History Type Response Smoking Status Current some day smoker; Exposed at work; Lives with someone who smokes; Cigarette Smoking Last 365 Days Yes; Reg Smoking Cessation Counseling Yes Assessment and Plan No data available for this section
--- OUTSIDE RECORDS SUMMARY | 2018-05-12 02:37 | XMS REPORT | Summary of Care ---
:1965 Author Organization [facility] Address [facility] [place], [place] [address]- Encounter HQ Nathan(FIN) [id number] Date(s): 08/02/15 - 08/02/15 [address] [place] [address]- Discharge Diagnosis: Muscle strain Discharge Disposition: Home Attending Physician: Briseida Hernandez MD Vital Signs Most recent to oldest 1 2 3 [Reference Range]: Temperature Oral [96.4-99.1 98.2 DegF 98.6 DegF DegF] (08/02/15 2:56 PM) (08/02/15 9:18 AM) Blood Pressure [90-140/60-90 104/73 mmHg 126/81 mmHg 123/85 mmHg mmHg] (08/02/15 2:56 PM) (08/02/15 10:44 AM) (08/02/15 9:18 AM) Respiratory Rate [14-20 BRMIN] 18 BRMIN 18 BRMIN 16 BRMIN (08/02/15 2:56 PM) (08/02/15 10:44 AM) (08/02/15 9:18 AM) Peripheral Pulse Rate [60-100 91 bpm 80 bpm 86 bpm bpm] (08/02/15 2:56 PM) (08/02/15 10:44 AM) (08/02/15 9:18 AM) Weight 72.727 kg (08/02/15 9:18 AM) Problem List Condition Effective Dates Status Health Status Informant Abdominal pain(Confirmed) Active Nausea and vomiting(Confirmed) Active Pain(Confirmed) Active Allergies, Adverse Reactions, Alerts Substance Reaction Severity Status aspirin Active iodine topical Active penicillin Active Medications cyclobenzaprine 10 mg, 1 tab, Route: PO, Drug form: TAB, ONCE, Dosing Weight 72.727, kg, Priority: STAT, Start date:08/02/15 10:24:00, Stop date: 08/02/15 10:24:00 Notes: (Same As: Flexeril) Start Date: 08/02/15 Stop Date: 08/02/15 Status: Completedcyclobenzaprine 10 mg oral tablet 10 mg=1 tab, PO, TID, PRN for spasms, X 3 day, # 9 tab, 0 Refill(s) Start Date: 08/02/15 Stop Date: 08/05/15 Status: Orderedmorphine Sulfate 4 mg, 1 mL, Route: IM, Drug form: INJ, ONCE, Dosing Weight 72.727, kg, Priority : STAT, Start date: 08/02/15 10:23:00, Stop date: 08/02/15 10:23:00 Notes: (Same as:MORPhine Sulfate) Start Date: 08/02/15 Stop Date: 08/02/15 Status: CompletedNorco 10/325 oral tablet 1 tab, Route: PO, Drug Form: TAB, Dosing Weight 72.727, kg, ONCE, STAT, Start date: 08/02/15 12:24:00, Stop date: 08/02/15 12:24:00 Notes: Do not exceed 4gm/day of acetaminophen. (Same as: [place] 325/10) Start Date: 08/02/15 Stop Date: 08/02/15 Status: CompletedNorco 5/325 oral tablet 1 tab, Route: PO, Drug Form: TAB, Dosing Weight 72.727, kg, ONCE, STAT, Start date: 08/02/15 10:14:00, Stop date: 08/02/15 10:14:00 Notes: (Same as: [place] 325/5) Do not exceed 4gm/day of acetaminophen. Start Date: 08/02/15 Stop Date: 08/02/15 Status: Discontinuedorphenadrine 60 mg, 2 mL, Route: IM, Drug form: INJ, ONCE, Dosing Weight 72.727, kg, Priority : STAT, Start date: 08/02/15 10:14:00, Stop date: 08/02/15 10:14:00 Start Date: 08/02/15 Stop Date: 08/02/15 Status: Discontinued Results No data available for this section Immunizations No data available for this section Procedures No data available for this section Social History Social History Type Response Smoking Status Current some day smoker; Exposed at work; Lives with someone who smokes; Cigarette Smoking Last 365 Days Yes; Reg Smoking Cessation Counseling Yes Assessment and Plan No data available for this section
--- OUTSIDE RECORDS SUMMARY | 2018-05-12 02:37 | XMS REPORT | Summary of Care ---
:1965 Author Organization [facility] Address [address], [place] [address]- Encounter [facility](FIN) [id number] Date(s): 01/18/16 - 01/18/16 [id number] [place] [address]- Discharge Diagnosis: Polysubstance abuse Discharge Disposition: Home or Self Care Attending Physician: Abdelrahman Devine MD Vital Signs Most recent to oldest [Reference Range]: 1 2 Height 170.18 cm (01/18/16 2:51 AM) Temperature Oral [96.4-99.1 DegF] 97.9 DegF 98.0 DegF (01/18/16 4:30 AM) (01/18/16 2:51 AM) Blood Pressure [90-140/60-90 mmHg] 119/67 mmHg 136/104 mmHg (01/18/16 4:30 AM) (01/18/16 2:51 AM) Respiratory Rate [14-20 BRMIN] 16 BRMIN 24 BRMIN (01/18/16 4:30 AM) *HI* (01/18/16 2:51 AM) Peripheral Pulse Rate [60-100 bpm] 91 bpm 99 bpm (01/18/16 4:30 AM) (01/18/16 2:51 AM) Weight 68.182 kg (01/18/16 2:51 AM) Body Mass Index 23.54 m2 (01/18/16 2:51 AM) Problem List Condition Effective Dates Status Health Status Informant Abdominal pain(Confirmed) Active Nausea and vomiting(Confirmed) Active Pain(Confirmed) Active Allergies, Adverse Reactions, Alerts Substance Reaction Severity Status aspirin Active iodine topical Active penicillin Active Medications No data available for this section Results No data available for this section [...]
--- OUTSIDE RECORDS SUMMARY | 2018-05-12 02:38 | XMS REPORT | Summary of Care ---
:1965 Author Organization [facility] Address [address] [place], [place] [address]- Encounter HQ Encntr_alijocelyn(FIN) [id number] Date(s): 06/28/16 - 07/01/[address] [address]- Discharge Disposition: Home or Self Care Attending Physician: Brandon Pino MD Admitting Physician: Brandon Pino MD Vital Signs Most recent to oldest 1 2 3 [Reference Range]: Height 170.18 cm (06/28/16 10:33 PM) Temperature Oral [96.4-99.1 98.2 DegF 98.3 DegF 97.8 DegF DegF] (07/01/16 12:06 PM) (07/01/16 8:00 AM) (07/01/16 4:00 AM) Blood Pressure [90-140/60-90 130/72 mmHg 134/72 mmHg 151/89 mmHg mmHg] (07/01/16 12:06 PM) (07/01/16 8:00 AM) *HI* (07/01/16 4:00 AM) Respiratory Rate [14-20 BRMIN] 20 BRMIN 18 BRMIN 20 BRMIN (07/01/16 12:06 PM) (07/01/16 8:00 AM) (07/01/16 4:00 AM) Peripheral Pulse Rate [60-100 56 bpm 55 bpm 58 bpm bpm] *LOW* *LOW* *LOW* (07/01/16 12:06 PM) (07/01/16 8:00 AM) (07/01/16 4:00 AM) Weight 63.636 kg (06/28/16 10:33 PM) Body Mass Index 21.97 m2 (06/28/16 10:33 PM) Problem List Condition Effective Dates Status Health Status Informant Mass of abdomen(Confirmed) Resolved Abdominal pain(Confirmed) Active Bipolar 1 disorder, Resolved depressed(Confirmed) Nausea and vomiting(Confirmed) Active Pain(Confirmed) Active Allergies, Adverse Reactions, Alerts Substance Reaction Severity Status aspirin Active iodine topical Active penicillin Active Medications acetaminophen 650 mg, 2 tab, Route: PO, Drug form: TAB, Q4H, Dosing Weight 70.455, kg, PRN Pain 1-3/Temp > 100.4 F, Start date: 06/28/16 22:17:00 CLEANING STAFF SUPERVISOR, Duration: 30 day, Stop date: 07/28/16 22:16:00 CLEANING STAFF SUPERVISOR Notes: Do not exceed 4 gm/day. (Same as: Tylenol) Start Date: 06/28/16 Stop Date: 07/01/16 Status: Discontinuedbarium sulfate 450 mL, Route: PO, Drug Form: SUSP, Dosing Weight 70.455, kg, ONCE, Start date: 06/28/16 17:00:00 CLEANING STAFF SUPERVISOR, Stop date: 06/28/16 17:00:00 CLEANING STAFF SUPERVISOR Notes: Same as Readi-Cat 2 Start Date: 06/28/16 Stop Date: 06/28/16 Status: Completedciprofloxacin 400 mg, 200 mL, Route: IVPB, Drug form: INJ, [id number], Dosing Weight 63.636, kg, Priority: STAT, Start date: 06/29/16 4:36:00 CLEANING STAFF SUPERVISOR, Duration: 30 day, Stop date: 07/28/16 16:36:00 CLEANING STAFF SUPERVISOR Notes: Do not refrigerate Start Date: 06/29/16 Stop Date: 07/01/16 Status: Discontinuedenoxaparin 40 mg, 0.4 mL, Route: SUB-Q, Drug form: INJ, [id number], Dosing Weight 70.455, kg , Start date: 06/28/16 23:00:00 CLEANING STAFF SUPERVISOR, Duration: 30 day, Stop date: 07/27/16 23:00 :00 CLEANING STAFF SUPERVISOR Notes: (Same as: Lovenox) Start Date: 06/28/16 Stop Date: 06/29/16 Status: DiscontinuedFlagyl 500 mg, 100 mL, Route: IVPB, Drug form: INJ, [id number], Dosing Weight 63.636, kg, Start date: 06/29/16 5:00:00 CLEANING STAFF SUPERVISOR, Duration: 30 day, Stop date: 07/28/16 21:00: 00 CLEANING STAFF SUPERVISOR Notes: (Same as: Flagyl) Avoid alcohol. Start Date: 06/29/16 Stop Date: 07/01/16 Status: Voided With ResultsFlagyl 500 mg, 100 mL, Route: IVPB, Drug form: INJ, [id number], Dosing Weight 63.636, kg, Start date: 07/01/16 14:00:00 CLEANING STAFF SUPERVISOR, Duration: 30 day, Stop date: 07/31/16 6:00: 00 CLEANING STAFF SUPERVISOR Notes: (Same as: Flagyl) Avoid alcohol. Start Date: 07/01/16 Stop Date: 07/01/16 Status: CanceledLovenox 40 mg, 0.4 mL, Route: SUB-Q, Drug form: INJ, [id number], Dosing Weight 70.455, kg , Start date: 06/29/16 9:00:00 CLEANING STAFF SUPERVISOR, Duration: 30 day, Stop date: 07/28/16 9:00: 00 CLEANING STAFF SUPERVISOR Notes: (Same as: Lovenox) Start Date: 06/29/16 Stop Date: 07/01/16 Status: Discontinuedmagnesium sulfate 50 mL, Rate: 25 ml/hr, Infuse over: 2 hr, Route: IVPB, Total Volume: 50, Start date: 06/29/16 20:05:00 CLEANING STAFF SUPERVISOR, Stop date: 06/29/16 20:05:00 CLEANING STAFF SUPERVISOR Notes: WASTE: F/P - Sink; E - Municipal Trash Bin Start Date: 06/29/16 Stop Date: 06/29/16 Status: Completedmetoclopramide 10 mg, 2 mL, Route: IVP, Drug form: INJ, ONCE, Dosing Weight 70.455, kg, Priority: STAT, Start date:06/28/16 17:00:00 CLEANING STAFF SUPERVISOR, Stop date: 06/28/16 17:00:00 CLEANING STAFF SUPERVISOR Notes: (Same as: Reglan) Start Date: 06/28/16 Stop Date: 06/28/16 Status: Completedmorphine Sulfate 4 mg, Route: IVP, Drug form: INJ, ONCE, Dosing Weight 70.455, kg, Priority: STAT , Start date: 06/28/16 20:33:00 CLEANING STAFF SUPERVISOR, Stop date: 06/28/16 20:33:00 CLEANING STAFF SUPERVISOR Start Date: 06/28/16 Stop Date: 06/28/16 Status: Completedmorphine Sulfate 4 mg, 1 mL, Route: IVP, Drug form: SOLN, ONCE, Dosing Weight 70.455, kg, Priority: STAT, Start date:06/28/16 17:00:00 CLEANING STAFF SUPERVISOR, Stop date: 06/28/16 17:00:00 CLEANING STAFF SUPERVISOR Notes: (Same as:MORPhine Sulfate) Start Date: 06/28/16 Stop Date: 06/28/16 Status: Completedmorphine Sulfate 2 mg, 0.5 mL, Route: IVP, Drug form: SOLN, Q3H, Dosing Weight 70.455, kg, PRN Pain Score 4-6, Start date: 06/28/16 22:17:00 CLEANING STAFF SUPERVISOR, Duration: 30 day, Stop date: 07/28/16 22:16:00 CLEANING STAFF SUPERVISOR Notes: (Same as:MORPhine Sulfate) Start Date: 06/28/16 Stop Date: 07/01/16 Status: Discontinuedondansetron 4 mg, 2 mL, Route: IVP, Drug form: INJ, Q4H, Dosing Weight 70.455, kg, PRN Nausea & Vomiting, Start date: 06/28/16 22:17:00 CLEANING STAFF SUPERVISOR, Duration: 30 day, Stop date: 07/28/16 22:16:00 CLEANING STAFF SUPERVISOR Notes: (Same as: Zofran) MEDICATION WASTE Product Size: 4 mgProduct Wasted: ___ mg Start Date: 06/28/16 Stop Date: 07/01/16 Status: DiscontinuedSaline Flush 0.9% 10 mL, Route: IVP, Drug Form: INJ, Dosing Weight 70.455, kg, PRN, PRN Line Flush , Start date: 06/28/16 17:00:00 CLEANING STAFF SUPERVISOR, Duration: 30 day, Stop date: 07/28/16 16:59 :00 CLEANING STAFF SUPERVISOR Notes: (Same as: BD Posiflush) Start Date: 06/28/16 Stop Date: 06/28/16 Status: DiscontinuedSaline Flush 0.9% 10 ml, Route: IVP, Drug Form: INJ, Dosing Weight 70.455, kg, PRN, PRN Line Flush , Start date: 06/28/16 22:17:00 CLEANING STAFF SUPERVISOR, Duration: 30 day, Stop date: 07/28/16 22:16 :00 CLEANING STAFF SUPERVISOR Notes: (Same as: BD Posiflush) Start Date: 06/28/16 Stop Date: 07/01/16 Status: Discontinuedsodium chloride 0.45% 1000 ml INJ 1,000 mL 1,000 mL, Rate: 100 ml/hr, Infuse over: 10 hr, Route: IV, Dosing Weight 70.455 kg, Total Volume: 1,000, Start date: 06/28/16 22:17:00 CLEANING STAFF SUPERVISOR, Duration: 30 day, Stop date: 07/28/16 22:16:00 CLEANING STAFF SUPERVISOR Start Date: 06/28/16 Stop Date: 07/01/16 Status: DiscontinuedSodium Chloride 0.9% (Bolus) IV 1,000 mL, 1000 ml/hr, Infuse Over: 1 hr, Route: IV, 1,000, Drug form: INJ, ONCE , Priority: STAT, Dosing Weight 70.455 kg, Start date: 06/28/16 17:00:00 CLEANING STAFF SUPERVISOR, Duration: 1 doses or times, Stop date: 06/28/16 17:00:00 CLEANING STAFF SUPERVISOR Start Date: 06/28/16 Stop Date: 06/28/16 Status: Completedtramadol 50 mg oral tablet 50 mg=1 tab, PO, Q6H, PRN Pain Score 6-10, X 3 day, # 12 tab, 0 Refill(s) Start Date: 07/01/16 Stop Date: 07/04/16 Status: Ordered Results ELECTROLYTES Most recent to oldest 1 2 3 [Reference Range]: Sodium Lvl [135-145 mEq/L] 135 mEq/L 144 mEq/L 139 mEq/L (06/30/16 10:25 AM) (06/29/16 8:12 AM) (06/28/16 6:46 PM) Potassium Lvl [3.5-5.1 4.6 mEq/L 3.8 mEq/L 3.9 mEq/L mEq/L] (06/30/16 10:25 AM) (06/29/16 8:12 AM) (06/28/16 6:46 PM) Chloride Lvl [95-109 mEq/L] 108 mEq/L 111 mEq/L 105 mEq/L (06/30/16 10:25 AM) *HI* (06/28/16 6:46 PM) (06/29/16 8:12 AM) CO2 [24-32 mEq/L] 21 mEq/L 26 mEq/L 29 mEq/L *LOW* (06/29/16 8:12 AM) (06/28/16 6:46 PM) (06/30/16 10:25 AM) AGAP [10.0-20.0 mEq/L] 10.6 mEq/L 10.8 mEq/L 8.9 mEq/L (06/30/16 10:25 AM) (06/29/16 8:12 AM) *LOW* (06/28/16 6:46 PM) CHEM PANEL Most recent to oldest 1 2 3 [Reference Range]: Creatinine Lvl [0.50-1.40 0.80 mg/dL 0.80 mg/dL 0.69 mg/dL mg/dL] (06/30/16 10:25 AM) (06/29/16 8:12 AM) (06/28/16 6:46 PM) eGFR 99 mL/min/1.73m2 1 99 mL/min/1.73m2 2 117 mL/min/1.73m2 3 *NA* *NA* *NA* (06/30/16 10:25 AM) (06/29/16 8:12 AM) (06/28/16 6:46 PM) BUN [7-22 mg/dL] 4 mg/dL 8 mg/dL 10 mg/dL *LOW* (06/29/16 8:12 AM) (06/28/16 6:46 PM) (06/30/16 10:25 AM) B/C Ratio [6-25] 5 10 *LOW* (06/29/16 8:12 AM) (06/30/16 10:25 AM) Glucose Lvl [70-99 mg/dL] 80 mg/dL 87 mg/dL 94 mg/dL (06/30/16 10:25 AM) (06/29/16 8:12 AM) (06/28/16 6:46 PM) Total Protein [6.4-8.4 6.5 g/dL 6.3 g/dL 7.8 g/dL g/dL] (06/30/16 10:25 AM) *LOW* (06/28/16 6:46 PM) (06/29/16 8:12 AM) Albumin Lvl [3.5-5.0 g/dL] 2.4 g/dL 3.0 g/dL 3.5 g/dL *LOW* *LOW* (06/28/16 6:46 PM) (06/30/16 10:25 AM) (06/29/16 8:12 AM) Globulin [2.7-4.2 g/dL] 4.1 g/dL 3.3 g/dL 4.3 g/dL (06/30/16 10:25 AM) (06/29/16 8:12 AM) *HI* (06/28/16 6:46 PM) A/G Ratio [0.7-1.6] 0.6 0.9 0.8 *LOW* (06/29/16 8:12 AM) (06/28/16 6:46 PM) (06/30/16 10:25 AM) Calcium Lvl [8.5-10.5 8.2 mg/dL 8.7 mg/dL 8.9 mg/dL mg/dL] *LOW* (06/29/16 8:12 AM) (06/28/16 6:46 PM) (06/30/16 10:25 AM) Phosphorus [2.5-4.5 mg/dL] 2.6 mg/dL (06/30/16 10:25 AM) Magnesium Lvl [1.8-2.4 1.9 mg/dL 1.7 mg/dL mg/dL] (06/30/16 10:25 AM) *LOW* (06/29/16 8:12 AM) ALT [0-65 unit/L] 27 unit/L 29 unit/L 42 unit/L (06/30/16 10:25 AM) (06/29/16 8:12 AM) (06/28/16 6:46 PM) AST [0-37 unit/L] 19 unit/L 15 unit/L 26 unit/L (06/30/16 10:25 AM) (06/29/16 8:12 AM) (06/28/16 6:46 PM) Alk Phos [39-136 unit/L] 103 unit/L 72 unit/L 97 unit/L (06/30/16 10:25 AM) (06/29/16 8:12 AM) (06/28/16 6:46 PM) Bili Total [0.2-1.3 mg/dL] 0.4 mg/dL 0.3 mg/dL 0.4 mg/dL (06/30/16 10:25 AM) (06/29/16 8:12 AM) (06/28/16 6:46 PM) Bili Direct [0.0-0.3 mg/dL] 0.1 mg/dL (06/28/16 6:46 PM) Bili Indirect [0.0-1.0 0.3 mg/dL mg/dL] (06/28/16 6:46 PM) Amylase Lvl [25-115 unit/L] 41 unit/L (06/28/16 6:46 PM) Lipase Lvl [73-393 unit/L] 83 unit/L (06/28/16 6:46 PM) 1Result Comment: The eGFR is calculated using [...] eGFR should be multiplied by the estimated BMI.ENDOCRINOLOGY Most recent to oldest [Reference Range]: 1 2 3 S Preg [Negative] Negative *NA* (06/28/16 6:46 PM) URINE AND STOOL Most recent to oldest [Reference Range]: 1 2 3 UA Turbidity [Clear] Clear (06/28/16 6:46 PM) UA Color Yellow *NA* (06/28/16 6:46 PM) UA pH [5.0-8.0] 5.0 (06/28/16 6:46 PM) UA Spec Grav [<=1.030] 1.019 (06/28/16 6:46 PM) UA Glucose [Negative mg/dL] Negative mg/dL *NA* (06/28/16 6:46 PM) UA Blood [Negative] Small *ABN* (06/28/16 6:46 PM) UA Ketones [Negative mg/dL] 80 mg/dL *ABN* (06/28/16 6:46 PM) UA Protein [Negative mg/dL] Negative mg/dL (06/28/16 6:46 PM) UA Urobilinogen [0.1-1.0 mg/dL] 2.0 mg/dL *HI* (06/28/16 6:46 PM) UA Bili [Negative] Negative *NA* (06/28/16 6:46 PM) UA Leuk Est [Negative] Negative (06/28/16 6:46 PM) UA Nitrite [Negative] Negative (06/28/16 6:46 PM) UA WBC [0-5 /HPF] <1 /HPF (06/28/16 6:46 PM) UA RBC [0-2 /HPF] 1 /HPF (06/28/16 6:46 PM) UA Sq Epi [Few /LPF] Few /LPF *NA* (06/28/16 6:46 PM) UA Mucus [None Seen /LPF] Few /LPF *NA* (06/28/16 6:46 PM) HEMATOLOGY Most recent to oldest [Reference Range]: 1 2 3 WBC [3.7-10.4 K/CMM] 9.2 K/CMM 12.4 K/CMM (06/29/16 8:12 AM) *HI* (06/28/16 6:46 PM) RBC [4.20-5.40 M/CMM] 4.75 M/CMM 5.81 M/CMM (06/29/16 8:12 AM) *HI* (06/28/16 6:46 PM) Hgb [12.0-16.0 g/dL] 13.3 g/dL 15.7 g/dL (06/29/16 8:12 AM) (06/28/16 6:46 PM) Hct [36.0-48.0 %] 39.7 % 49.0 % (06/29/16 8:12 AM) *HI* (06/28/16 6:46 PM) MCV [80.0-98.0 fL] 83.5 fL 84.4 fL (06/29/16 8:12 AM) (06/28/16 6:46 PM) MCH [27.0-31.0 pg] 28.0 pg 27.1 pg (06/29/16 8:12 AM) (06/28/16 6:46 PM) MCHC [32.0-36.0 g/dL] 33.6 g/dL 32.1 g/dL (06/29/16 8:12 AM) (06/28/16 6:46 PM) RDW [11.5-14.5 %] 15.9 % 16.1 % *HI* *HI* (06/29/16 8:12 AM) (06/28/16 6:46 PM) Platelet [133-450 K/CMM] 214 K/CMM 251 K/CMM (06/29/16 8:12 AM) (06/28/16 6:46 PM) MPV [7.4-10.4 fL] 10.8 fL 10.9 fL *HI* *HI* (06/29/16 8:12 AM) (06/28/16 6:46 PM) Segs [45.0-75.0 %] 66.1 % 82.5 % (06/29/16 8:12 AM) *HI* (06/28/16 6:46 PM) Lymphocytes [20.0-40.0 %] 22.1 % 13.2 % (06/29/16 8:12 AM) *LOW* (06/28/16 6:46 PM) Monocytes [2.0-12.0 %] 9.9 % 3.8 % (06/29/16 8:12 AM) (06/28/16 6:46 PM) Eosinophils [0.0-4.0 %] 1.8 % 0.4 % (06/29/16 8:12 AM) (06/28/16 6:46 PM) Basophils [0.0-1.0 %] 0.1 % 0.1 % (06/29/16 8:12 AM) (06/28/16 6:46 PM) Segs-Bands # [1.5-8.1 K/CMM] 6.1 K/CMM 10.4 K/CMM (06/29/16 8:12 AM) *HI* (06/28/16 6:46 PM) Lymphocytes # [1.0-5.5 K/CMM] 2.0 K/CMM 1.7 K/CMM (06/29/16 8:12 AM) (06/28/16 6:46 PM) Monocytes # [0.0-0.8 K/CMM] 0.9 K/CMM 0.5 K/CMM *HI* (06/28/16 6:46 PM) (06/29/16 8:12 AM) Eosinophils # [0.0-0.5 K/CMM] 0.2 K/CMM 0.1 K/CMM (06/29/16 8:12 AM) (06/28/16 6:46 PM) Basophils # [0.0-0.2 K/CMM] 0.0 K/CMM 0.0 K/CMM (06/29/16 8:12 AM) (06/28/16 6:46 PM) Toxic Gran [None Seen] Moderate *ABN* (06/28/16 6:46 PM) Large Plt [None Seen] Moderate *ABN* (06/28/16 6:46 PM) PT [12.0-14.7 seconds] 13.6 seconds 13.6 seconds (06/30/16 10:25 AM) (06/29/16 8:12 AM) INR [0.85-1.17] 1.02 1.02 (06/30/16 10:25 AM) (06/29/16 8:12 AM) PTT [22.9-35.8 seconds] 27.4 seconds 33.2 seconds (06/30/16 10:25 AM) (06/29/16 8:12 AM) Immunizations No data available for this section Procedures Procedure Date Related Diagnosis Body Site Hysterectomy Uterine fibroidectomy Social History Social History Type Response Smoking Status Current every day smoker; Type: Cigarettes; Started at age: 16.0; Ready to change: Yes; Concerns about tobacco use in household: No; Lives with someone who smokes; Cigarette Smoking Last 365 Days Yes; Reg Smoking Cessation Counseling Yes Assessment and Plan Extracted from: Title: Clinical Document Author: Carlene Christianson MD Date: 06/30/16 The patient has no chest pain, shortness of breath, nausea, or vomiting. She has not had a bowel movement. She tolerated clear liquids. Vitals Tmp(F) Tmp(C) Ttype BP MAP Pulse RR SpO2 FIO2 ETCO2 06/30 07:48 97.6 36.44 oral 122/75 --- 65 20 100 --- --- 06/30 04:30 97.5 36.39 oral 121/74 --- 67 20 97 --- --- 06/30 00:01 98.2 36.78 oral 129/81 --- 76 20 100 --- --- 06/29 20:18 98.5 36.94 oral 130/86 --- 67 20 99 --- --- 06/29 17:01 ---- ---- ---- 127/79 --- 91 18 --- --- --- 24 Hr Tmax: 98.5F (36.94c) at 06/29 20:18 Vital Signs are the last 5 in the past 48 hours. 24 Hr Tmin: 97.5F (36.39c) at 06/30 04:30 Weights are the last 5 in 60 days, plus initial. General: alert and oriented to person, place, and time. NAD. HEENT: mucus membranes moist. No oral lesions. Neck: supple. no thyromegaly. CV: normal S1S2. no S3. no m/g/r. RR: lungs ctab. no wheezing or ronchi. chest expansion is symmetric. GI: nondistended, nontender. no masses. Ext: no c/c/e. peripheral pulses 2+. Skin: no rashes, lesions, or ulcerations. Psych: affect is appropriate. insight is appropriate. Lymph: no neck or groin LAD. Neuro: strength 5/5. sensation full to light touch bilaterally. 24hr Labs 06/30 1025 Sodium Lvl 135 Potassium Lvl 4.6 Chloride Lvl 108 CO2 21 L AGAP 10.6 Glucose Lvl 80 Creatinine Lvl 0.80 BUN 4 L B/C Ratio 5 L Total Protein 6.5 Albumin Lvl 2.4 L Globulin 4.1 A/G Ratio 0.6 L Calcium Lvl 8.2 L ALT 27 AST 19 Alk Phos 103 Bili Total 0.4 eGFR 99 Magnesium Lvl 1.9 Phosphorus 2.6 PT 13.6 INR 1.02 PTT 27.4 Scheduled Meds (3): ciprofloxacin 400 mg IVPB [id number] 200 ml/hr [Last Rescheduled Dt/Tm: 06/29/16 16:36:00 CLEANING STAFF SUPERVISOR] [eMAR Schedule: (06/30/16) 04:36, 16:36] enoxaparin (Lovenox) 40 mg SUB-Q [id number] [eMAR Schedule: (06/30/16) 09:00] [Future Dose: 07/01/16 09:00] metroNIDAZOLE (Flagyl) 500 mg IVPB [id number] 200 ml/hr [Last Rescheduled Dt/Tm: 06/29/16 13:00:00 CLEANING STAFF SUPERVISOR] [eMAR Schedule: (06/30/16) 05:00, 13:00, 21:00] Unscheduled Meds: None PRN Meds (4): acetaminophen 650 mg PO Q4H morphine Sulfate 2 mg IVP Q3H ondansetron 4 mg IVP Q4H sodium chloride (Saline Flush 0.9%) 10 ml IVP PRN One Time Meds (1): (Completed) magnesium sulfate 2 gm IVPB ONCE 25 ml/hr Continuous Infusions (1): sodium chloride 0.45% 1000 ml INJ 1,000 mL 1,000 mL 100 ml/hr Type of Bladder Control: Voluntary Type of Urinary Elimination: Incontinent Assessment and Plan: 1. Small bowel obstruction. The patient's diet is being advanced. KUB is pending. Will continue to monitor. Continue ciprofloxacin and flagyl for now. Addendum by Carlene Christianson MD on 06/30/2016 2. Hypomagnsemia. Will replete. 12:49
--- OUTSIDE RECORDS SUMMARY | 2018-05-12 02:38 | XMS REPORT | Summary of Care ---
:1965 Author Organization [facility] Address [address] [place], [place] [address]- Encounter HQ Nathan(FIN) [id number] Date(s): 12/11/17 - 12/11/[address] [address]- Encounter Diagnosis Acute reaction to stress (Discharge Diagnosis) - 12/11/17 Homeless (Discharge Diagnosis) - 12/11/17 Discharge Disposition: DC/TF To Psych Hosp Attending Physician: Darryn Coto MD Vital Signs Most recent to oldest [Reference Range]: 1 2 Height 170.18 cm (12/11/17 6:25 AM) Temperature Oral [96.4-99.1 DegF] 98.4 DegF 98.7 DegF (12/11/17 12:20 PM) (12/11/17 6:25 AM) Blood Pressure [90-140/60-90 mmHg] 111/70 mmHg 124/82 mmHg (12/11/17 12:20 PM) (12/11/17 6:25 AM) Respiratory Rate [14-20 BRMIN] 18 BRMIN 20 BRMIN (12/11/17 12:20 PM) (12/11/17 6:25 AM) Peripheral Pulse Rate [60-100 bpm] 79 bpm 94 bpm (12/11/17 12:20 PM) (12/11/17 6:25 AM) Weight 58.182 kg (12/11/17 6:25 AM) Body Mass Index 20.09 m2 (12/11/17 6:25 AM) Problem List Condition Effective Dates Status Health Status Informant Mass of abdomen(Confirmed) Resolved Abdominal pain(Confirmed) Active Bipolar 1 disorder, Resolved depressed(Confirmed) Nausea and vomiting(Confirmed) Active Pain(Confirmed) Active Allergies, Adverse Reactions, Alerts Substance Reaction Severity Status NKDA Active Medications No data available for this section Results ELECTROLYTES Most recent to oldest [Reference Range]: 1 Sodium Lvl [135-145 mEq/L] 139 mEq/L (12/11/17 6:44 AM) Potassium Lvl [3.5-5.1 mEq/L] 4.4 mEq/L (12/11/17 6:44 AM) Chloride Lvl [95-109 mEq/L] 106 mEq/L (12/11/17 6:44 AM) CO2 [24-32 mEq/L] 25 mEq/L (12/11/17 6:44 AM) AGAP [10.0-20.0 mEq/L] 12.4 mEq/L (12/11/17 6:44 AM) CHEM PANEL Most recent to oldest [Reference Range]: 1 Creatinine Lvl [0.50-1.40 mg/dL] 1.02 mg/dL (12/11/17 6:44 AM) eGFR 73 mL/min/1.73m2 1 *NA* (12/11/17 6:44 AM) BUN [7-22 mg/dL] 17 mg/dL (12/11/17 6:44 AM) B/C Ratio [6-25] 17 (12/11/17 6:44 AM) Glucose Lvl [70-99 mg/dL] 99 mg/dL (12/11/17 6:44 AM) Total Protein [6.4-8.4 g/dL] 7.7 g/dL (12/11/17 6:44 AM) Albumin Lvl [3.5-5.0 g/dL] 3.7 g/dL (12/11/17 6:44 AM) Globulin [2.7-4.2 g/dL] 4.0 g/dL (12/11/17 6:44 AM) A/G Ratio [0.7-1.6] 0.9 (12/11/17 6:44 AM) Calcium Lvl [8.5-10.5 mg/dL] 9.0 mg/dL (12/11/17 6:44 AM) ALT [0-65 unit/L] 38 unit/L (12/11/17 6:44 AM) AST [0-37 unit/L] 30 unit/L (12/11/17 6:44 AM) Alk Phos [39-136 unit/L] 115 unit/L (12/11/17 6:44 AM) Bili Total [0.2-1.3 mg/dL] 0.3 mg/dL (12/11/17 6:44 AM) 1Result Comment: The eGFR is calculated using the CKD-EPI formula. In most young , healthy individualsthe eGFR will be >90 mL/min/1.73m2. The eGFR declines with age. An eGFR of 60-89 may be normal insome populations, particularly the elderly, for whom the [...] eGFR should be multiplied by the estimated BMI.DRUG SCREEN Most recent to oldest [Reference Range]: 1 U Amph Scr [Negative] Negative *NA* (12/11/17 6:44 AM) U Yanci Scr [Negative] Negative *NA* (12/11/17 6:44 AM) U Benzodia Scr [Negative] Negative *NA* (12/11/17 6:44 AM) U Cocaine Scr [Negative] Positive *ABN* (12/11/17 6:44 AM) U Opiate Scr [Negative] Negative *NA* (12/11/17 6:44 AM) U Phencyc Scr [Negative] Negative *NA* (12/11/17 6:44 AM) U Cannab Scr [Negative] Negative *NA* (12/11/17 6:44 AM) UDS Note See Note (12/11/17 6:44 AM) TOXICOLOGY Most recent to oldest [Reference Range]: 1 Salicylate Lvl [0.0-30.0 mg/dL] 3.5 mg/dL (12/11/17 6:44 AM) Etoh (%) <.003 % *NA* (12/11/17 6:43 AM) Ethanol Lvl <3 mg/dL *NA* (12/11/17 6:43 AM) Immunizations No data available for this section Procedures Procedure Date Related Diagnosis Body Site Status Hysterectomy Completed Uterine fibroidectomy Completed Social History Social History Type Response Smoking Status Current every day smoker; Type: Cigarettes; Lives with someone who smokes; Cigarette Smoking Last 365 Days Yes; Reg Smoking Cessation Counseling Yes entered on: 12/11/17 Assessment and Plan No data available for this section
--- OUTSIDE RECORDS SUMMARY | 2018-05-12 02:38 | XMS REPORT | Summary of Care ---
:1965 Author Organization [facility] Address [facility] [place], [place] [address]- Encounter HQ [email or web address]_[email or web address](FIN) [id number] Date(s): 08/18/17 - 08/18/[address] [address]- Encounter Diagnosis Pain in right knee (Final) - 08/25/17 Effusion, left knee (Final) - Major depressive disorder, single episode, unspecified (Final) - Rheumatoid arthritis, unspecified (Final) - Nicotine dependence, cigarettes, uncomplicated (Final) - Bilateral knee pain (Discharge Diagnosis) - 08/18/17 Pain and swelling of left knee. (Discharge Diagnosis) - 08/18/17 Discharge Disposition: Home or Self Care Attending Physician: Makayla Toledo MD Vital Signs Most recent to oldest [Reference Range]: 1 2 Height 162.56 cm (08/18/17 10:46 AM) Temperature Oral [96.4-99.1 DegF] 98.5 DegF 98.6 DegF (08/18/17 12:01 PM) (08/18/17 10:46 AM) Blood Pressure [90-140/60-90 mmHg] 121/62 mmHg 110/65 mmHg (08/18/17 12:01 PM) (08/18/17 10:46 AM) Respiratory Rate [14-20 BRMIN] 18 BRMIN 20 BRMIN (08/18/17 12:01 PM) (08/18/17 10:46 AM) Peripheral Pulse Rate [60-100 bpm] 68 bpm 71 bpm (08/18/17 12:01 PM) (08/18/17 10:46 AM) Weight 61.364 kg (08/18/17 10:46 AM) Body Mass Index 23.22 m2 (08/18/17 10:46 AM) Problem List Condition Effective Dates Status Health Status Informant Mass of abdomen(Confirmed) Resolved Abdominal pain(Confirmed) Active Bipolar 1 disorder, Resolved depressed(Confirmed) Nausea and vomiting(Confirmed) Active Pain(Confirmed) Active Allergies, Adverse Reactions, Alerts Substance Reaction Severity Status NKDA Active Medications Mobic 7.5 mg oral tablet 7.5 mg=1 tab, PO, BID, PRN Pain, # 14 tab, 0 Refill(s) Start Date: 08/18/17 Status: OrderedMotrin 600 mg, Route: PO, Drug form: TAB, ONCE, Dosing Weight 61.364, kg, Priority: STAT, Start date: 08/18/17 11:30:00 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, 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
--- NOTE | 2018-05-12 04:49 | ER ---
Nurse's Notes [facility] Name: Erna Tabor Age: 52 yrs Sex: Female : 1965 Arrival Date: 05/12/2018 Time: 02:32 Bed 8 Private MD: Diagnosis: Influenza due to unidentified influenza virus;Vomiting Presentation: 05/12 02:50 Presenting complaint: Patient states: she was just discharged from ED but is still bb feeling nauseous and vomited on lobby floor pt states she is hurting all over and has abdominal pain and nausea. Transition of care: patient was not received from another setting of care. Onset of symptoms was May 12, 2018. Risk Assessment: Do you want to hurt yourself or someone else? Patient reports no desire to harm self or others. Initial Sepsis Screen: Does the patient meet any 2 criteria? No. Patient's initial sepsis screen is negative. Does the patient have a suspected source of infection? No. Patient's initial sepsis screen is negative. Care prior to arrival: None. 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 - Social history:: Smoking status: Patient uses tobacco products, smokes one-half pack cigarettes per day, Patient uses alcohol, occasionally. - Ebola Screening: : No symptoms or risks identified at this time. Screenin:53 Abuse screen: Denies threats or abuse. Denies injuries from another. Nutritional la1 screening: No deficits noted. Tuberculosis screening: No symptoms or risk factors identified. Fall Risk None identified. Assessment: 02:57 General: Appears in no apparent distress. Behavior is cooperative, appropriate for age. tl1 Neuro: Level of Consciousness is awake, alert, obeys commands. Cardiovascular: Denies chest pain. Respiratory: Airway is patent Trachea midline Respiratory effort is even, unlabored, Breath sounds are clear bilaterally. GI: Abdomen is non-distended, Bowel sounds present X 4 quads. Abd is soft X 4 quads Reports nausea, vomiting. : No signs and/or symptoms were reported regarding the genitourinary system. EENT: No signs and/or symptoms were reported regarding the EENT system. Derm: No signs and/or symptoms reported regarding the dermatologic system. 02:58 Pain: Complains of pain in GENERALIZED. tl1 05:52 Reassessment: Patient and/or family updated on plan of care and expected duration. Pain la1 level reassessed. Patient is alert, oriented x 3, equal unlabored respirations, skin warm/dry/pink. Patient states feeling better. Patient states symptoms have improved. Vital Signs: 02:53 BP 116 / 80; Pulse 97; Resp 18 S; Temp 99.7(O); Pulse Ox 97% on R/A; Weight 58.97 kg bb (R); Height 5 ft. 7 in. (170.18 cm) (R); Pain 8/10; 03:30 BP 106 / 74; Pulse 95; Resp 18; Pulse Ox 96% on R/A; tl1 05:52 BP 112 / 69; Pulse 89; Resp 17; Temp 99; Pulse Ox 98% on R/A; Pain 2/10; la1 02:53 Body Mass Index 20.36 (58.97 kg, 170.18 cm) bb ED Course: 02:32 Patient arrived in ED. ds1 02:45 Deepak Hinkle MD is Attending Physician. 02:48 Grisel Covington, RAMOS is Primary Nurse. lp1 02:52 Triage completed. bb 02:53 Arm band placed on Patient placed in an exam room, on a stretcher, on pulse oximetry. bb 02:53 Patient has correct armband on for positive identification. Bed in low position. Call la1 light in reach. Side rails up X 1. 02:59 No provider procedures requiring assistance completed. tl1 05:53 Patient did not have IV access during this emergency room visit. la1 Administered Medications: 02:52 Drug: Pepcid 40 mg Route: PO; tl1 05:52 Follow up: Response: No adverse reaction; Marked relief of symptoms; Nausea is decreasedla1 02:53 Drug: Zofran 4 mg Route: PO; tl1 05:52 Follow up: Response: No adverse reaction; Marked relief of symptoms; Nausea is decreasedla1 Outcome: 04:49 Discharge ordered by . gs 05:53 Discharged to home ambulatory. la1 05:53 Condition: good 05:53 Discharge instructions given to patient, Instructed on discharge instructions, follow up and referral plans. medication usage, Demonstrated understanding of instructions, follow-up care, medications, Prescriptions given X 1. 05:54 Patient left the ED. la1 Signatures: Diane Fall ds1 Narda Stanton RN RN bb Grisel Covington RN RN lp1 Carlton Franco RN RN la1 Yecenia Jordan RN RN tl1 Deepak Hinkle MD MD
--- NOTE | 2018-05-12 04:49 | EDPHYS ---
Physician Documentation [facility] Name: Erna Tabor Age: 52 yrs Sex: Female : 1965 Arrival Date: 05/12/2018 Time: 02:32 Bed 8 Private MD: ED Physician Deepak Hinkle HPI: 05/12 04:46 pt was seen earlier for feeling bad chest pain flu symptoms, cardiac workup negative gs was discharged to [facility]. had episode of emesis and wanted to check in.. 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 - Social history:: Smoking status: Patient uses tobacco products, smokes one-half pack cigarettes per day, Patient uses alcohol, occasionally. - Ebola Screening: : No symptoms or risks identified at this time. ROS: 04:46 Constitutional: Positive for body aches. gs 04:46 Cardiovascular: Negative for chest pain. 04:46 Respiratory: Negative for shortness of breath. 04:46 All other systems are negative. Exam: 04:46 Head/Face: Normocephalic, atraumatic. Eyes: Pupils equal round and reactive to light, gs extra-ocular motions intact. Lids and lashes normal. Conjunctiva and sclera are non-icteric and not injected. Cornea within normal limits. Periorbital areas with no swelling, redness, or edema. ENT: Nares patent. No nasal discharge, no septal abnormalities noted. Tympanic membranes are normal and external auditory canals are clear. Oropharynx with no redness, swelling, or masses, exudates, or evidence of obstruction, uvula midline. Mucous membranes moist. Neck: Trachea midline, no thyromegaly or masses palpated, and no cervical lymphadenopathy. Supple, full range of motion without nuchal rigidity, or vertebral point tenderness. No Meningismus. Chest/axilla: Normal chest wall appearance and motion. Nontender with no deformity. No lesions are appreciated. Cardiovascular: Regular rate and rhythm with a normal S1 and S2. No gallops, murmurs, or rubs. Normal PMI, no JVD. No pulse deficits. Respiratory: Lungs have equal breath sounds bilaterally, clear to auscultation and percussion. No rales, rhonchi or wheezes noted. No increased work of breathing, no retractions or nasal flaring. Abdomen/GI: Soft, non-tender, with normal bowel sounds. No distension or tympany. No guarding or rebound. No evidence of tenderness throughout. Back: No spinal tenderness. No costovertebral tenderness. Full range of motion. Skin: Warm, dry with normal turgor. Normal color with no rashes, no lesions, and no evidence of cellulitis. MS/ Extremity: Pulses equal, no cyanosis. Neurovascular intact. Full, normal range of motion. Neuro: Awake and alert, GCS 15, oriented to person, place, time, and situation. Cranial nerves II-XII grossly intact. Motor strength 5/5 in all extremities. Sensory grossly intact. Cerebellar exam normal. Normal gait. 04:46 Constitutional: The patient appears alert, awake. Vital Signs: 02:53 BP 116 / 80; Pulse 97; Resp 18 S; Temp 99.7(O); Pulse Ox 97% on R/A; Weight 58.97 kg bb (R); Height 5 ft. 7 in. (170.18 cm) (R); Pain 8/10; 03:30 BP 106 / 74; Pulse 95; Resp 18; Pulse Ox 96% on R/A; tl1 05:52 BP 112 / 69; Pulse 89; Resp 17; Temp 99; Pulse Ox 98% on R/A; Pain 2/10; la1 02:53 Body Mass Index 20.36 (58.97 kg, 170.18 cm) MDM: 02:46 Patient medically screened. gs 04:46 Data reviewed: vital signs, nurses notes. Response to treatment: the patient's symptoms gs have resolved after treatment, no pain no vomiting, and as a result, I will discharge patient. 05/12 03:01 Order name: Flu; Complete Time: 03:36 em1 Administered Medications: 02:52 Drug: Pepcid 40 mg Route: PO; tl1 05:52 Follow up: Response: No adverse reaction; Marked relief of symptoms; Nausea is decreasedla1 02:53 Drug: Zofran 4 mg Route: PO; tl1 05:52 Follow up: Response: No adverse reaction; Marked relief of symptoms; Nausea is decreasedla1 Disposition: 05/12/18 04:49 Discharged to Home. Impression: Influenza due to unidentified influenza virus, Vomiting. - Condition is Stable. - Discharge Instructions: Nausea and Vomiting, Adult. - Prescriptions for Zofran 4 mg Oral Tablet - take 1 tablet by ORAL route every 12 hours As needed; 6 tablet. - Medication Reconciliation Form, Thank You Letter, Antibiotic Education, Prescription Opioid Use form. - Follow up: Private Physician; When: 2 - 3 days; Reason: Re-evaluation by your physician. Signatures: Dispatcher [employer] EDMS Narda Stanton RN RN bb Carlton Franco RN RN la1 Yecenia Jordan RN RN tl1 Deepak Hinkle MD MD gs Corrections: (The following items were deleted from the chart) 05:54 04:49 05/12/2018 04:49 Discharged to Home. Impression: Influenza due to unidentified la1 influenza virus; Vomiting. Condition is Stable. Forms are Medication Reconciliation Form, Thank You Letter, Antibiotic Education, Prescription Opioid Use. Follow up: Private Physician; When: 2 - 3 days; Reason: Re-evaluation by your physician. gs
== END 2018-05-12 05:54 | disposition home or self-care (01) ==
LOC: ER 02:31
DX: J11.1 Influenza due to unidentified influenza virus with other respiratory manifestations (principal); F17.210 Nicotine dependence, cigarettes, uncomplicated
CPT/HCPCS: 87804; 99283